=== PATIENT | male | born 1970 | race Caucasian/White ===

== ENCOUNTER → 2025-07-29 | Outpatient (CLI) | payer BC, SELFPAY ==
--- NOTE | 2025-07-29 09:22 | US_ITS ---
PROCEDURE: ABD LIMITED W/ ELASTOGRAPHY REASON FOR EXAM: FATTY LIVER COMPARISON: None. TECHNIQUE: Procedure Code: [id number] Modality: US Procedure: ABD LIMITED W/ ELASTOGRAPHY Right upper quadrant abdominal ultrasound. Lisa ElastQ Imaging shear wave elastography for non-invasive assessment of liver tissue stiffness. Lisa EPIQ Elite. FINDINGS: LIVER: Size: Enlarged (hepatomegaly) Length: 19.5 cm Echotexture: Diffusely echogenic suggesting fatty infiltration Contour: Normal Lesions: None identified Elastography: EQI Med: 10.2 kPa EQI Med Dez: 1.82 m/s IQR/Med: 20.8 %* GALLBLADDER: Sludge is seen within the gallbladder lumen. There is evidence of a 3 mm x 3 mm x 3 mm gallbladder polyp. COMMON BILE DUCT: Normal measuring 6 mm. . PANCREAS: Normal Visualized portions of the right kidney are unremarkable. No right upper quadrant ascites. US/ABD Limited w/ Elastography IMPRESSION: MODERATE TO SEVERE HEPATIC FIBROSIS Hepatomegaly. Small gallbladder polyp. Small amount of sludge is seen in the gallbladder lum en. Reference Values: SRU <1.37 m/s (5.7kPa): No to mild fibrosis 1.37 m/s - 2.2 m/s: Moderate to severe fibrosis >2.2 m/s (15kPa): Significant fibrosis / cirrhosis METAVIR Score F2 or higher: 1.34 m/s (5.7kPa) F3 or higher: 1.55 m/s (7.3kPa) F4: 1.80 m/s (10kPa) * If the IQR/Med is >30%, the variance in the measurements is a large and the a ccuracy of the measurement may be in question. Reading Location: [place] [id number]
--- OUTSIDE RECORDS SUMMARY | 2025-07-29 10:00 | XMS RPT_ITS | CCD ---
Author Organization [facility] ion Partnership [facility] Care Team Providers Care Stockroom Worker Name Role Phone Avila Harris Unavailable [phone] Unavailable Unavailable Avila Harris MD Primary Care Provider [phone] Avila Harris MD Unavailable [phone] AVILA HARRIS Referring Unavailable AVILA HARRIS Primary Care Unavailable Avila Harris MD Primary Care Provider Avila Harris MD Primary Care Provider Avila Harris MD Unavailable AVILA HARRIS Attending Unavailable AVILA HARRIS Primary Care Unavailable Avila Harris Referring Unavailable Avila Harris Unavailable Avila Harris Primary Care Unavailable Allergies Allergy Classification Reported Allergen(s) Allergy Type Date of Onset Reaction(s) Facility Penicillins (antibiotic) (2 sources) Penicillins; Translations: [Penicillins] [facility] Work Phone: (5 sources) Penicillins; Translations: [Penicillins] Allergy to drug (finding) 10-30-2022 [email or web address] 2 Repository (5 sources) Penicillins Drug Allergy 10-30-2022 Unknown [facility] (1 source) Penicillins Drug Allergy 10-30-2022 Unknown [facility] Medications Current Medications Medication Drug Class(es) Dates Sig (Normalized) Sig (Original) atorvastatin 40 mg oral tablet (14 sources) HMG-CoA Reductase Inhibitor Start: 04-30-2025 End: 07-02-2026 take 1 tablet by mouth once daily atorvastatin (Lipitor) 40 mg tablet Indications: Mixed hyperlipidemia Take 1 tablet (40 mg) by mouth once every day. 90 tablet 3 07/02/2025 07/02/2026 Active Start: 11-06-2022 End: 02-04-2025 take 1 tablet by mouth once daily atorvastatin (Lipitor) 40 mg tablet Indications: Mixed hyperlipidemia Take 1 tablet (40 mg) by mouth once every day. 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 30 tablet 11 11/06/2022 02/15/2023 Discontinued (Therapy completed) Start: 11-24-2019 take 1 tablet by sonia th once daily Levothyroxine Sodium 25 MCG Oral Tablet Take 1 tablet daily Quantity: 90 Refills: 0 Ordered: 14-Jan-2021 Avila Harris MD Start : 24-Nov-2019 Active take with 200 mcg for total daily dose of 225 mcg predniSONE 10 mg oral tablet (1 source) Start: 02-05-2024 End: 02-10-2024 take 4 tablets by mouth once daily predniSONE (Deltasone) 10 mg tablet Indications: Acute pain of right knee Take 4 tablets (40 mg) by mouth once daily for 5 days. 20 tablet 2 02/05/2024 02/10/2024 Active Problems Active Problems Problem Classification Problem Date Documented Da te Episodic/Chronic Disorders of lipid metabolism (17 sources) Hyperlipidemia; Translations: [Other and unspecified hyperlipidemia] Onset: 10-30-2022 10-30-2022 Chronic Other liver diseases (18 sources) Steatosis of liver; Translations: [Other chronic nonalcoholic liver disease] Onset: 10-30-2022 02-15-2023 Chronic Other liver diseases (5 sources) Fatty (change of) liver, not elsewhere classified; Translations: [Fatty (change of) liver, not elsewhere classified] Onset: 10-30-2022 Chronic Other non-traumatic joint disorders (1 source) Pain in right knee; Translations: [Pain in joint, lower leg] 02-05-2024 Episodic Other nutritional; endocrine; and metabolic disorders (15 sources) Obesity; Translations: [Obesity, unspecified] Onset: 10-30-2022 02-15-2023 Chronic Other nutritional; endocrine; and metabolic disorders (7 sources) Severe obesity; Translations: [Morbid obesity] Onset: 10-30-2022 10-30-2022 Chronic Other screening for suspected conditions (not mental disorders or infectious disease) (7 sources) Patient encounter status; Translations: [Special screening for malignant neoplasms of colon] Onset: 07-02-2025 07-02-2025 Episodic Thyroid disorders (17 sources) Hypothyroidism; Translations: [Unspecified acquired hypothyroidism] Onset: 10-30-2022 02-15-2023 Chronic Unclassified (1 source) Patient encounter status 07-02-2025 Past or Other Problems Problem Classification Problem Date Documented Date Episodic/Chronic Diabetes mellitus without complication (11 sources) Prediabetes; Translations: [Other abnormal glucose] Onset: 10-30-2022 10-30-2022 Episodic Other connective tissue disease (9 sources) Suprapatellar bursitis of left knee; Translations: [Other enthesopathy of knee] Onset: 10-30-2022 10-30-2022 Episodic Results Test Name Value Interpretation Reference Range Facility CBC (H/H, RBC, INDICES, WBC, PLT)on 06-26-2025 Erythrocyte distribution width (RBC) [Ratio] 12.2 % Normal 11.0-15.0 [facility] Comment on above: Performed By: #### 5 363, 7600, 1759, 899, 88591 #### [facility] [place] [address] Station Helper: Cresencio Clark MD Hematocrit (Bld) [Volume fraction] 43.4 % Normal 38.5-50.0 [facility] Comment on above: Performed By: #### 5 363, 7600, 1759, 899, 81189 #### [facility] [place] [address] Station Helper: Cresencio Clark MD Hemoglobin (Bld) [Mass/Vol] 14.9 g/dL Normal 13.2-17.1 [facility] Comment on above: Performed By: #### 5 363, 7600, 1759, 899, 78804 #### [facility] [place] [address] Station Helper: Cresencio Clark MD MCH (RBC) [Entitic mass] 32.7 pg Normal 27.0-33.0 [facility] Comment on above: Performed By: #### 5 363, 7600, 1759, 899, 51314 #### [facility] [address] [place] [address] Station Helper: Cresencio Clark MD MCHC (RBC) [Mass/Vol] 34.3 g/dL Normal 32.0-36.0 [facility] Comment on above: Result Comment: For adults, a slight decrease in the calculated MCHC value (in the range of 30 to 32 g/dL) is most likely not clinically significant; however, it should be interpreted with caution in correlation with other red cell parameters and the patient's clinical condition. Performed By: #### 5 363, 7600, 175, 89, 97525 #### [facility] [address], [address] [place] [address] Station Helper: Cresencio Clark MD MCV (RBC) [Entitic vol] 95.2 fL Normal 80.0-100.0 [facility] Comment on above: Performed By: #### 5 363, 7600, 1758, , 15889 #### [facility] [address], [address] [place] [address] Station Helper: Cresencio Clark MD Platelet mean volume (Bld) [Entitic vol] 10.5 fL Normal 7.5-12.5 [facility] Comment on above: Performed By: #### 5 363, 7600, 175, 89, 08033 #### [facility] [place] [address] Station Helper: Cresencio Clark MD Platelets (Bld) [#/Vol] 215 10*3/uL Normal 140-400 [facility] Comment on above: Performed By: #### 5 363, 7600, 175, 89, 48853 #### [facility] [place] [address] Station Helper: Cresencio Clark MD RBC (Bld) [#/Vol] 4.56 10*6/uL Normal 4.20-5.80 [facility] Comment on above: Performed By: #### 5 363, 7600, 175, 89, 01796 #### [facility] of [place] [address] [place] [address] Station Helper: Cresencio Clark MD WBC (Bld) [#/Vol] 5.6 10*3/uL Normal 3.8-10.8 [facility] Comment on above: Performed By: #### 5 363, 7600, 1759, 899, 83527 #### [facility] of [address], [address] [place] [address] Station Helper: Cresencio Clark MD COMPREHENSIVE METABOLIC PANE L W/ANION GAPon 06-26-2025 Albumin [Mass/Vol] 4.8 g/dL Normal 3.6-5.1 [facility] Comment on above: Performed By: #### 5 363, 7600, 175, 89, 79968 #### [facility] [place] [address] Station Helper: Cresencio Clark MD ALP [Catalytic activity/Vol] 70 U/L Normal 35-144 [facility] Comment on above: Performed By: #### 5 363, 7600, 1759, 899, 23358 #### [facility] [place] [address] Station Helper: Cresencio Clark MD ALT [Catalytic activity/Vol] 85 U/L High 9-46 [facility] Comment on above: Performed By: #### 5 363, 7600, 1759, 899, 45137 #### [facility] of [place] [address] Station Helper: Cresencio Clark MD AST [Catalytic activity/Vol] 96 U/L High 10-35 [facility] Comment on above: Performed By: #### 5 363, 7600, 1759, 899, 90550 #### [facility] of [place] [address] Station Helper: Cresencio Clark MD Bilirubin [Mass/Vol] 0.7 mg/dL Normal 0.2-1.2 [facility] Comment on above: Performed By: #### 5 363, 7600, 1759, 899, 04131 #### [facility] [place] [address] Station Helper: Cresencio Clark MD Calcium [Mass/Vol] 9.6 mg/dL Normal 8.6-10.3 [facility] Comment on above: Performed By: #### 5 363, 7600, 175, 89, 83342 #### [facility] [place] [address] Station Helper: Cresencio Clark MD Chloride [Moles/Vol] 103 mmol/L Normal 98-110 [facility] Comment on above: Performed By: #### 5 363, 7600, 175, , 09061 #### [facility] [place] [address] Station Helper: Cresencio Clark MD CO2 [Moles/Vol] 25 mmol/L Normal 20-32 [facility] Comment on above: Performed By: #### 5 363, 7600, 175, 89, 68277 #### [facility] [place] [address] Station Helper: Cresencio Clark MD Creatinine [Mass/Vol] 0.74 mg/dL Normal 0.70-1.30 [facility] Comment on above: Performed By: #### 5 363, 0, 175, 89, 97969 #### [facility] [place] [address] Station Helper: Cresencio Clark MD ELECTROLYTE BALANCE 9 mmol/L (calc) Normal 7-17 [facility] Comment on above: Performed By: #### 5 363, 7600, 175, 89, 85711 #### [facility] [place] [address] Station Helper: Cresencio Clark MD GFR/1.73 sq M.predicted among non-blacks MDRD (S/P/Bld) [Vol rate/Area] 108 mL/min/{1.73_m2} Normal > OR = 60 [facility] Comment on above: Performed By: #### 5 363, 7600, 1759, 899, 70407 #### [facility] [place] [address] Station Helper: Cresencio Clark MD Glucose [Mass/Vol] 127 mg/dL High 65-99 [facility] Comment on above: Result Comment: Fasting reference interval For someone without known diabetes, a glucose value >125 mg/dL indicates that they may have diabetes and this should be confirmed with a follow-up test. Performed By: #### 5 363, 7600, 1759, 89, 80463 #### [facility] [place] [address] Station Helper: Cresencio Clark MD Potassium [Moles/Vol] 4.6 mmol/L Normal 3.5-5.3 [facility] Comment on above: Performed By: #### 5 363, 7600, 175, 89, 02056 #### [facility] [place] [address] Station Helper: Cresencio Clark MD Protein [Mass/Vol] 7.9 g/dL Normal 6.1-8.1 [facility] Comment on above: Performed By: #### 5 363, 7600, 175, 89, 14476 #### [facility] [place] [address] Station Helper: Cresencio Clark MD Sodium [Moles/Vol] 137 mmol/L Normal 135-146 [facility] Comment on above: Performed By: #### 5 363, 7600, 1759, 899, 72939 #### [facility] [place] [address] Station Helper: Cresencio Clark MD Urea nitrogen [Mass/Vol] 14 mg/dL Normal 7-25 [facility] Comment on above: Performed By: #### 5 363, 7600, 1759, 899, 76061 #### [facility] [address] [place] [address] Station Helper: Cresencio Clark MD LIPID PANEL, [place] [address] Cholesterol [Mass/Vol] 166 mg/dL Normal <200 [facility] Comment on above: Order Comment: FASTI NG:YES FASTING: YES Performed By: #### 5 363, 7600, 1759, 899, 50530 #### [facility] [address], [address] [place] [address] Station Helper: Cresencio Clark MD Cholesterol in HDL [Mass/Vol] 41 mg/dL Normal > OR = 40 [facility] Comment on above: Order Comment: FASTI NG:YES FASTING: YES Performed By: #### 5 363, 7600, 1759, 899, 76022 #### [facility] [address], [address] [place] [address] Station Helper: Cresencio Clark MD Cholesterol in LDL [Mass/Vol] 98 mg/dL Normal [facility] Comment on above: Order Comment: FASTI NG:YES FASTING: YES Result Comment: Refe rence range: <100 Desirable range <100 mg/dL for primary prevention; <70 mg/dL for patients with CHD or diabetic patients with > or = 2 CHD risk factors. LDL-C is now calculated using the Adria calculation, which is a validated novel method providing better accuracy than the Friedewald equation in the estimation of LDL-C. Rosalio SMITH et al. BUD. 2013;310(19): 9641-3429 (http://education.[employer]/faq/IZQ231) Performed By: #### 5 363, 7600, 1759, 899, 99932 #### [facility] [address], [address] [place] [address] Station Helper: Cresencio Clark MD Cholesterol.total /Cholesterol in HDL [Mass ratio] 4.0 {ratio} Normal <5.0 [facility] Comment on above: Order Comment: FASTI NG:YES FASTING: YES Performed By: #### 5 363, 7600, 1759, 899, 17931 #### [facility] [address], [address] [place] [address] Station Helper: Cresencio Clark MD NON HDL CHOLESTEROL 125 mg/dL (calc) Normal <130 [facility] Comment on above: Order Comment: FASTI NG:YES FASTING: YES Result Comment: For patients with diabetes plus 1 major ASCVD risk factor, treating to a non-HDL-C goal of <100 mg/dL (LDL-C of <70 mg/dL) is considered a therapeutic option. Performed By: #### 5 363, 7600, 1759, 89, 48374 #### [facility] [address], [address] [place] [address] Station Helper: Cresencio Clark MD Triglyceride [Mass/Vol] 170 mg/dL High <150 [facility] Comment on above: Order Comment: FASTI NG:YES FASTING: YES Performed By: #### 5 363, 7600, 175, 89, 15136 #### [facility] [address], [address] [place] [address] Station Helper: Cresencio Clark MD PSA, TOTALon 06-26-2025 PSA, TOTAL 0.31 ng/mL Normal < OR = 4.00 [facility] Comment on above: Result Comment: The total PSA value from this assay system is standardized against the WHO standard. The test result will be approximately 20% lower when compared to the equimolar-standardized total PSA (Blaine Darrius). Comparison of serial PSA results should be interpreted with this fact in mind. This test was performed using the Siemens chemiluminescent method. Values obtained from different assay methods cannot be used interchangeably. PSA levels, regardless of value, should not be interpreted as absolute evidence of the presence or absence of disease. Performed By: #### 5 363, 7600, 1759, 89, 03030 #### [facility] [address], [address] [place] [address] Station Helper: Cresencio Clark MD TSHon 06-26-2025 TSH Qn 0.30 m[IU]/L Low 0.40-4.50 [facility] Comment on above: Performed By: #### 5 363, 7600, 1759, 89, 06527 #### [facility] [address], [address] [place] [address] Station Helper: Cresencio Clark MD US ABDOMEN LIMITED LIVERon 0 09-21-2023 US ABDOMEN LIMITED LIVER Interpreted By: Tova Gomez, STUDY: US ABDOMEN LIMITED LIVER; 09/21/2023 7:53 am INDICATION: Signs/Symptoms:elevated lfts. COMPARISON: None. ACCESSION NUMBER(S): [id number] ORDERING CLINICIAN: AVILA HARRIS TECHNIQUE: Multiple images of the right upper quadrant were obtained. This examination was interpreted at [facility]. FINDINGS: LIVER: Liver measures 18.4 cm in craniocaudal dimension. The liver is diffusely echogenic in appearance, consistent with diffuse fatty infiltration. GALLBLADDER: The gallbladder is nondistended and demonstrates no evidence of gallstones, wall thickening or surrounding fluid. The gallbladder wall measures 3 mm, within upper limits of normal. Sonographic Lubin's sign is negative per technologist report. BILIARY TREE: No intra or extrahepatic biliary dilatation is identified. The common bile duct measures 4 mm. PANCREAS: The pancreas is poorly visualized due to overlying bowel gas.. RIGHT KIDNEY: The right kidney is normal in size, measuring 12 cm in craniocaudal dimension. The renal cortical echogenicity and thickness are within normal limits. No hydronephrosis or renal calculi are seen. IMPRESSION: Findings suggestive of hepatic steatosis. MACRO: None. Signed by: Tova Gomez 09/21/2023 12:14 PM Dictation workstation: [id number] [facility] US Liver limitedon Findings suggestive of hepatic steatosis. MACRO: None. Signed by: Tova Gomez 09/21/2023 12:14 PM Dictation workstation: [id number] Interpreted By: Tova Andino, STUDY: US ABDOMEN LIMITED LIVER; 09/21/2023 7:53 am INDICATION: Signs/Symptoms:elevated lfts. COMPARISON: None. ACCESSION NUMBER(S): [id number] ORDERING CLINICIAN: AVILA HARRIS TECHNIQUE: Multiple images of the right upper quadrant were obtained. This examination was interpreted at [facility]. FINDINGS: LIVER: Liver measures 18.4 cm in craniocaudal dimension. The liver is diffusely echogenic in appearance, consistent with diffuse fatty infiltration. GALLBLADDER: The gallbladder is nondistended and demonstrates no evidence of gallstones, wall thickening or surrounding fluid. The gallbladder wall measures 3 mm, within upper limits of normal. Sonographic Lubin's sign is negative per technologist report. BILIARY TREE: No intra or extrahepatic biliary dilatation is identified. The common bile duct measures 4 mm. PANCREAS: The pancreas is poorly visualized due to overlying bowel gas.. RIGHT KIDNEY: The right kidney is normal in size, measuring 12 cm in craniocaudal dimension. The renal cortical echogenicity and thickness are within normal limits. No hydronephrosis or renal calculi are seen. [facility] MMODAL Tova Gomez MD - 09/21/2023 Interpreted By: Tova Gomez, STUDY: US ABDOMEN LIMITED LIVER; 09/21/2023 7:53 am INDICATION: Signs/Symptoms:elevated lfts. COMPARISON: None. ACCESSION NUMBER(S): [id number] ORDERING CLINICIAN: AVILA HARRIS TECHNIQUE: Multiple images of the right upper quadrant were obtained. This examination was interpreted at [facility]. FINDINGS: LIVER: Liver measures 18.4 cm in craniocaudal dimension. The liver is diffusely echogenic in appearance, consistent with diffuse fatty infiltration. GALLBLADDER: The gallbladder is nondistended and demonstrates no evidence of gallstones, wall thickening or surrounding fluid. The gallbladder wall measures 3 mm, within upper limits of normal. Sonographic Lubin's sign is negative per technologist report. BILIARY TREE: No intra or extrahepatic biliary dilatation is identified. The common bile duct measures 4 mm. PANCREAS: The pancreas is poorly visualized due to overlying bowel gas.. RIGHT KIDNEY: The right kidney is normal in size, measuring 12 cm in craniocaudal dimension. The renal cortical echogenicity and thickness are within normal limits. No hydronephrosis or renal calculi are seen. IMPRESSION: Findings suggestive of hepatic steatosis. MACRO: None. Signed by: Tova Gomez 09/21/2023 12:14 PM Dictation workstation: [id number] [facility] Work Phone: Radiology Study observation (narrative) [facility] Work Phone: US Liver limitedOrdered By: Tova Gomez on 09-21-2023 [facility] Work Phone: HEMOGLOBIN A1Con 11-02-2022 Glucose [Mass/Vol] 128 mg/dL Normal [facility] Comment on above: Performed By: #### H BA1E #### [address] [address] HbA1c (Bld) [Mass fraction] 6.1 % Abnormal [facility] Comment on above: Result Comment: Diag nosis of Diabetes-Adults Non-Diabetic: < or = 5.6% Increased risk for developing diabetes: 5.7-6.4% Diagnostic of diabetes: > or = 6.5% . Monitoring of Diabetes Age (y) Therapeutic Goal (%) Adults: >18 <7.0 Pediatrics: 13-18 <7.5 7-12 <8.0 0- 6 7.5-8.5 [employer]. Diabetes Care 33(S1), Sep 2009. Performed By: #### H BA1E #### [address] [address] CBC AND DIFFERENTIALon 11-01 % AUTOMATED IMMATURE GRAN 0.3 % Normal 0.0 - 0.9 [facility] Comment on above: Result Comment: Daisy ture Granulocyte Count (IG) includes promyelocytes, myelocytes and metamyelocytes but does not include bands. Percent differential counts (%) should be interpreted in the context of the absolute cell counts (cells/L). Performed By: #### C BCDF #### [address] [address] Basophils (Bld) [#/Vol] 0.05 10*3/uL Normal 0.00 - 0.10 [facility] Comment on above: Performed By: #### C BCDF #### [address] [address] Basophils/100 WBC (Bld) 0.7 % Normal 0.0 - 2.0 [facility] Comment on above: Performed By: #### C BCDF #### [address] [address] Eosinophils (Bld) [#/Vol] 0.31 10*3/uL Normal 0.00 - 0.70 [facility] Comment on above: Performed By: #### C BCDF #### [address] [address] Eosinophils/100 WBC (Bld) 4.6 % Normal 0.0 - 6.0 [facility] Comment on above: Performed By: #### C BCDF #### [address] [address] Erythrocyte distribution width (RBC) [Ratio] 13.2 % Normal 11.5 - 14.5 [facility] Comment on above: Performed By: #### C BCDF #### [address] [address] Hematocrit (Bld) [Volume fraction] 44.8 % Normal 41.0 - 52.0 [facility] Comment on above: Performed By: #### C BCDF #### [address] [address] Hemoglobin (Bld) [Mass/Vol] 15.0 g/dL Normal 13.5 - 17.5 [facility] Comment on above: Performed By: #### C BCDF #### [address] [address] Lymphocytes (Bld) [#/Vol] 1.41 10*3/uL Normal 1.20 - 4.80 [facility] Comment on above: Performed By: #### C BCDF #### [address] [address] Lymphocytes/100 WBC (Bld) 20.7 % Normal 13.0 - 44.0 [facility] Comment on above: Performed By: #### C BCDF #### [address] [address] MCHC (RBC) [Mass/Vol] 33.5 g/dL Normal 32.0 - 36.0 [facility] Comment on above: Performed By: #### C BCDF #### [address] [place] [address] MCV (RBC) [Entitic vol] 93 fL Normal 80 - 100 [facility] Comment on above: Performed By: #### C BCDF #### [address] [address] Monocytes (Bld) [#/Vol] 0.51 10*3/uL Normal 0.10 - 1.00 [facility] Comment on above: Performed By: #### C BCDF #### [address] [address] Monocytes/100 WBC (Bld) 7.5 % Normal 2.0 - 10.0 [facility] Comment on above: Performed By: #### C BCDF #### [address] [address] Neutrophils (Bld) [#/Vol] 4.51 10*3/uL Normal 1.20 - 7.70 [facility] Comment on above: Result Comment: Perc ent differential counts (%) should be interpreted in the context of the absolute cell counts (cells/L). Performed By: #### C BCDF #### [address] [address] Neutrophils/100 WBC (Bld) 66.2 % Normal 40.0 - 80.0 [facility] [facility] Comment on above: Performed By: #### C BCDF #### [address] [address] Platelets (Bld) [#/Vol] 227 10*3/uL Normal 150 - 450 [facility] Comment on above: Performed By: #### C BCDF #### [address] [address] RBC 4.83 x10E12/L Normal 4.50 - 5.90 [facility], [place], operated [facility] Comment on above: Performed By: #### C BCDF #### [address] [address] WBC (Bld) [#/Vol] 6.8 10*3/uL Normal 4.4 - 11.3 [facility] Comment on above: Performed By: #### C BCDF #### [address] [address] COMPREHENSIVE PANELon 2022 Albumin [Mass/Vol] 4.8 g/dL Normal 3.4 - 5.0 [facility] Comment on above: Performed By: #### C MP #### [address] [address] ALP [Catalytic activity/Vol] 69 U/L Normal 33 - 120 [facility] Comment on above: Performed By: #### C MP #### [address] [address] ALT [Catalytic activity/Vol] 115 U/L High 10 - 52 [facility] Comment on above: Result Comment: Karina ents treated with Sulfasalazine may generate falsely decreased results for ALT. Performed By: #### C MP #### [address] [address] Anion gap [Moles/Vol] 11 mmol/L Normal 10 - 20 [facility] Comment on above: Performed By: #### C MP #### [address] [address] AST [Catalytic activity/Vol] 110 U/L High 9 - 39 [facility] Comment on above: Performed By: #### C MP #### [address] [address] Bilirubin [Mass/Vol] 0.9 mg/dL Normal 0.0 - 1.2 [facility] Comment on above: Performed By: #### C MP #### [address] [address] Calcium [Mass/Vol] 9.7 mg/dL Normal 8.6 - 10.3 [facility] Comment on above: Performed By: #### C MP #### [address] [address] Chloride [Moles/Vol] 102 mmol/L Normal 98 - 107 [facility] Comment on above: Performed By: #### C MP #### [address] [address] Creatinine [Mass/Vol] 0.72 mg/dL Normal 0.50 - 1.30 [facility] Comment on above: Performed By: #### C MP #### [address] [address] eGFR MALE >90 Normal >90 [facility] Comment on above: Result Comment: CALC ULATIONS OF ESTIMATED GFR ARE PERFORMED USING THE 2020 CKD-EPI STUDY REFIT EQUATION WITHOUT THE RACE VARIABLE FOR THE IDMS-TRACEABLE CREATININE METHODS. https://jasn.asnjournals.org/content/early//ASN.3993401130 Performed By: #### C MP #### [address] [address] Glucose [Mass/Vol] 111 mg/dL High 74 - 99 [facility] Comment on above: Performed By: #### C MP #### [address] [address] HCO3 (Bld) [Moles/Vol] 27 mmol/L Normal 21 - 32 [facility] Comment on above: Performed By: #### C MP #### [address] [address] Potassium [Moles/Vol] 4.3 mmol/L Normal 3.5 - 5.3 [facility] Comment on above: Performed By: #### C MP #### [address] [address] Protein [Mass/Vol] 8.1 g/dL Normal 6.4 - 8.2 [facility] Comment on above: Performed By: #### C MP #### [address] [address] Sodium [Moles/Vol] 136 mmol/L Normal 136 - 145 [facility] Comment on above: Performed By: #### C MP #### [address] [address] Urea nitrogen [Mass/Vol] 11 mg/dL Normal 6 - 23 [facility] Comment on above: Performed By: #### C MP #### [address] [address] Complete Blood Count + Diffe rentialon 03-01-2023 Basophils/100 WBC (Bld) 0.7 % 0.0 - 2.0 [facility] Work Phone: Erythrocyte distribution width (RBC) [Ratio] 13.2 % See Below [facility] Work Phone: Comment on above: Reference Range: 11. 5 - 14.5 Hematocrit (Bld) [Volume fraction] 44.8 % See Below [facility] Work Phone: Comment on above: Reference Range: 41. 0 - 52.0 Hemoglobin (Bld) [Mass/Vol] 15.0 g/dL See Below [facility] Work Phone: Comment on above: Reference Range: 13. 5 - 17.5 Lymphocytes/100 WBC (Bld) 20.7 % See Below [facility] Work Phone: Comment on above: Reference Range: 13. 0 - 44.0 MCHC (RBC) [Mass/Vol] 33.5 g/dL See Below [facility] Work Phone: Comment on above: Reference Range: 32. 0 - 36.0 MCV (RBC) [Entitic vol] 93 fL 80 - 100 [facility] Work Phone: Monocytes/100 WBC (Bld) 7.5 % 2.0 - 10.0 [facility] Work Phone: Neutrophils/100 WBC (Bld) 66.2 % See Below [facility] Work Phone: Comment on above: Reference Range: 40. 0 - 80.0 Platelets (Bld) [#/Vol] 227 10*3/uL 150 - 450 [facility] Work Phone: RBC (Bld) [#/Vol] 4.83 {x10E12/L} See Below [facility] Work Phone: Comment on above: Reference Range: 4.5 0 - 5.90 WBC (Bld) [#/Vol] 6.8 10*3/uL 4.4 - 11.3 [facility] Work Phone: Complete Blood Count + Differential 0.05 {x10E9/L} See Below [facility] Work Phone: Comment on above: Reference Range: 0.0 0 - 0.10 Complete Blood Count + Differential 0.31 {x10E9/L} See Below [facility] Work Phone: Comment on above: Reference Range: 0.0 0 - 0.70 Complete Blood Count + Differential 0.51 {x10E9/L} See Below [facility] Work Phone: Comment on above: Reference Range: 0.1 0 - 1.00 Complete Blood Count + Differential 1.41 {x10E9/L} See Below [facility] Work Phone: Comment on above: Reference Range: 1.2 0 - 4.80 Complete Blood Count + Differential 4.51 {x10E9/L} See Below [facility] Work Phone: Comment on above: Reference Range: 1.2 0 - 7.70 Percent differential counts (%) should be interpreted in the context of the absolute cell counts (cells/L). Complete Blood Count + Differential 4.6 % 0.0 - 6.0 [facility] Work Phone: Complete Blood Count + Differential 0.3 % 0.0 - 0.9 [facility] Work Phone: Comment on above: Immature Granulocyte Count (IG) includes promyelocytes, myelocytes and metamyelocytes but does not include bands. Percent differential counts (%) should be interpreted in the context of the absolute cell counts (cells/L). Hemoglobin A1Con 11-01-2022 Glucose [Mass/Vol] 128 mg/dL [facility] Work Phone: HbA1c (Bld) [Mass fraction] 6.1 % Abnormal [facility] Work Phone: Comment on above: Diagnosis of Diabete s-Adults Non-Diabetic: < or = 5.6% Increased risk for developing diabetes: 5.7-6.4% Diagnostic of diabetes: > or = 6.5%. Monitoring of Diabetes Age (y) Therapeutic Goal (%) Adults: >18 <7.0 Pediatrics: 13-18 <7.5 7-12 <8.0 0- 6 7.5-8.5 [employer]. Diabetes Care 33(S1), Sep 2009. LIPID PANEL (CORONARY RISK 2 )on 11-01-2022 Cholesterol [Mass/Vol] 251 mg/dL High 0 - 199 [facility] Comment on above: Result Comment: . AGE DESIRABLE BORDERLINE HIGH HIGH 0-19 Y 0 - 169 170 - 199 >/= 200 20-24 Y 0 - 189 190 - 224 >/= 225 >24 Y 0 - 199 200 - 239 >/= 240 All ranges are based on fasting samples. Specific therapeutic targets will vary based on patient-specific cardiac risk. . Pediatric guidelines reference:Pediatrics 2011, 128(S5). Adult guidelines reference: NCEP ATPIII Guidelines, BUD 2001, 258:2486-97 . Venipuncture immediately after or during the administration of Metamizole may lead to falsely low results. Testing should be performed immediately prior to Metamizole dosing. Performed By: #### L IPID #### [address] [address] Cholesterol in HDL [Mass/Vol] 40.0 mg/dL Normal [facility] Comment on above: Result Comment: . AGE VERY LOW LOW NORMAL HIGH 0-19 Y < 35 < 40 40-45 ---- 20-24 Y ---- < 40 >45 ---- >24 Y ---- < 40 40-60 >60 . Performed By: #### L IPID #### [address] [address] Cholesterol in LDL [Mass/Vol] 157 mg/dL High 0 - 99 [facility] Comment on above: Result Comment: . NEAR BORD AGE DESIRABLE OPTIMAL HIGH HIGH VERY HIGH 0-19 Y 0 - 109 --- 110-129 >/= 130 ---- 20-24 Y 0 - 119 --- 120-159 >/= 160 ---- >24 Y 0 - 99 100-129 130-159 160-189 >/=190 . Performed By: #### L IPID #### [address] [address] Cholesterol in VLDL [Mass/Vol] 54 mg/dL High 0 - 40 [facility] Comment on above: Performed By: #### L IPID #### [address] [address] Cholesterol.total /Cholesterol in HDL [Mass ratio] 6.3 {ratio} Abnormal [facility] Comment on above: Result Comment: REF VALUES DESIRABLE < 3.4 HIGH RISK > 5.0 Performed By: #### L IPID #### [address] [address] NON-HDL CHOLESTEROL 211 mg/dL Normal [facility] Comment on above: Result Comment: AGE DESIRABLE BORDERLINE HIGH HIGH VERY HIGH 0-19 Y 0 - 119 120 - 144 >/= 145 >/= 160 20-24 Y 0 - 149 150 - 189 >/= 190 ---- >24 Y 30 MG/DL ABOVE LDL CHOLESTEROL GOAL . Performed By: #### L IPID #### [address] [address] Triglyceride [Mass/Vol] 269 mg/dL High 0 - 149 [facility] Comment on above: Result Comment: . AGE DESIRABLE BORDERLINE HIGH HIGH VERY HIGH 0 D-90 D 19 - 174 ---- ---- ---- 91 D- 9 Y 0 - 74 75 - 99 >/= 100 ---- 10-19 Y 0 - 89 90 - 129 >/= 130 ---- 20-24 Y 0 - 114 115 - 149 >/= 150 ---- >24 Y 0 - 149 150 - 199 200- 499 >/= 500 . Venipuncture immediately after or during the administration of Metamizole may lead to falsely low results. Testing should be performed immediately prior to Metamizole dosing. Performed By: #### L IPID #### [address] [address] Laboratory - Chemistry and C hemistry - challengeon 11-01-2022 Albumin BCP dye [Mass/Vol] 4.8 g/dL 3.4 - 5.0 [facility] Work Phone: ALP [Catalytic activity/Vol] 69 U/L 33 - 120 [facility] Work Phone: ALT With P-5'-P [Catalytic activity/Vol] 115 U/L above high threshold 10 - 52 -[facility] [employer] [facility] Work Phone: Comment on above: Patients treated wit h Sulfasalazine may generate falsely decreased results for ALT. Anion gap [Moles/Vol] 11 mmol/L 10 - 20 [facility] Work Phone: AST With P-5'-P [Catalytic activity/Vol] 110 U/L above high threshold 9 - 39 -[facility] Work Phone: Bilirubin [Mass/Vol] 0.9 mg/dL 0.0 - 1.2 -[facility] [employer] [facility] Work Phone: Calcium [Mass/Vol] 9.7 mg/dL 8.6 - 10.3 [facility] Work Phone: Chloride [Moles/Vol] 102 mmol/L 98 - 107 [facility] Work Phone: CO2 [Moles/Vol] 27 mmol/L 21 - 32 -[facility] Work Phone: Creatinine [Mass/Vol] 0.72 mg/dL See Below [facility] [employer] [facility] Work Phone: Comment on above: Reference Range: 0.5 0 - 1.30 Glucose [Mass/Vol] 111 mg/dL above high threshold 74 - 99 [facility] Work Phone: Potassium [Moles/Vol] 4.3 mmol/L 3.5 - 5.3 -[facility] [employer] [facility] Work Phone: Protein [Mass/Vol] 8.1 g/dL 6.4 - 8.2 [employer] [facility] Work Phone: Sodium [Moles/Vol] 136 mmol/L 136 - 145 [facility] Work Phone: Urea nitrogen [Mass/Vol] 11 mg/dL 6 - 23 [facility] Work Phone: Lipid Panelon 11-01-2022 Cholesterol [Mass/Vol] 251 mg/dL above high threshold 0 - 199 [facility] Work Phone: Comment on above: . AGE DESIRABLE BORD MOLLY HIGH HIGH 0-19 Y 0 - 169 170 - 199 >/= 200 20-24 Y 0 - 189 190 - 224 >/= 225 >24 Y 0 - 199 200 - 239 >/= 240 All ranges are based on fasting samples. Specific therapeutic targets will vary based on patient-specific cardiac risk.. Pediatric guidelines reference:Pediatrics 2011, 128(S5). Adult guidelines reference: NCEP ATPIII Guidelines, BUD 2001, 258:2486-97. Venipuncture immediately after or during the administration of Metamizole may lead to falsely low results. Testing should be performed immediately prior to Metamizole dosing. Cholesterol in HDL [Mass/Vol] 40.0 mg/dL [employer] [facility] Work Phone: Comment on above: . AGE VERY LOW LOW N ORMAL HIGH 0-19 Y < 35 < 40 40-45 ---- 20- 24 Y ---- < 40 >45 ---- >24 Y ---- < 40 40-60 >60. Cholesterol in LDL [Mass/Vol] 157 mg/dL above high threshold 0 - 99 [employer] [facility] Work Phone: Comment on above: . NEAR BORD AGE ROSARIO RABLE OPTIMAL HIGH HIGH VERY HIGH 0-19 Y 0 - 109 --- 110-129 >/= 130 ---- 20-24 Y 0 - 119 --- 120-159 >/= 160 ---- >24 Y 0 - 99 100-129 130-159 160-189 >/=190. Cholesterol non HDL [Mass/Vol] 211 mg/dL [employer] [facility] Work Phone: Comment on above: AGE DESIRABLE BORDER LINE HIGH HIGH VERY HIGH 0-19 Y 0 - 119 120 - 144 >/= 145 >/= 160 20-24 Y 0 - 149 150 - 189 >/= 190 ---- >24 Y 30 MG/DL ABOVE LDL CHOLESTEROL GOAL. Cholesterol.total /Cholesterol in HDL [Mass ratio] 6.3 {ratio} Abnormal [employer] [facility] Work Phone: Comment on above: REF VALUESDESIRABLE < 3.4HIGH RISK > 5.0 Triglyceride [Mass/Vol] 269 mg/dL above high threshold 0 - 149 [employer] [facility] Work Phone: Comment on above: . AGE DESIRABLE BORD MOLLY HIGH HIGH VERY HIGH 0 D-90 D 19 - 174 ---- ---- ----91 D- 9 Y 0 - 74 75 - 99 >/= 100 ---- 10-19 Y 0 - 89 90 - 129 >/= 130 ---- 20-24 Y 0 - 114 115 - 149 >/= 150 ---- >24 Y 0 - 149 150 - 199 200- 499 >/= 500. Venipuncture immediately after or during the administration of Metamizole may lead to falsely low results. Testing should be performed immediately prior to Metamizole dosing. Lipid Panel 54 mg/dL above high threshold 0 - 40 [employer] [facility] Work Phone: No Panel Informationon 11-01 >90 >90 [employer] [facility] Work Phone: Comment on above: CALCULATIONS OF XAVIER MATED GFR ARE PERFORMED USING THE 2020 CKD-EPI STUDY REFIT EQUATION WITHOUT THE RACE VARIABLE FOR THE IDMS-TRACEABLE CREATININE METHODS.https://jasn.asnjournals.org/content//ASN.20 52056319 TSHon 11-01-2022 TSH Qn 39.11 m[IU]/L High 0.44 - 3.98 [facility] [place], [facility] Comment on above: Result Comment: TSH testing is performed using different testing methodology at [facility] than at other system [facility]. Direct result comparisons should only be made within the same method. Performed By: #### T SH2 #### [facility] [address] [place] [address] TSH - Thyroid Stimulating Ho eyad Serumon 11-01-2022 TSH Qn 39.11 m[IU]/L above high threshold See Below [facility] Work Phone: Comment on above: Reference Range: 0.4 4 - 3.98 TSH testing is performed using different testing methodology at [facility] than at other [facility]. Direct result comparisons should only be made within the same method. Office Visit (Primary Care T xt/Forms)on 04-28-2021 Follow-up visit Diagnoses/Problems Assessed Suprapatellar bursitis of left knee (726.69) (M70.52) Orders Hyperlipidemia, unspecified hyperlipidemia type Renew: Atorvastatin Calcium 40 MG Oral Tablet; Take 1 tablet daily Hypothyroidism Renew: Levothyroxine Sodium 200 MCG Oral Tablet; Take 1 tablet daily Renew: Levoxyl 50 MCG Oral Tablet; TAKE 1 TABLET DAILY Suprapatellar bursitis of left knee Xray Knee 3 View; Status:Active; Requested for:[id number]; Laterality : Left Radiologist to Determine Optimal Study : Y What are the patient's signs and symptoms? : pain Patient Discussion/Summary Management is dictated in HPI. Chief Complaint L KNEE PAIN History of Present Illness rev labsa nd doses has hasd left knee pain and stiffness since sunday, swelling, uses ice Sterile prep 1% bupivacaine anesthesia. Suprapatellar space entered from a superior lateral approach aspiration of 60 cc of turbid yellow fluid no blood. Patient tolerated procedure and knee felt much better afterwards. 40 mg Kenalog and 1 cc bupivacaine were injected prior to withdrawal. Discussion as to etiology and management. If needed resolves over weekend no further action if he does not resolve over the next 72 hours he should have x-ray and we can possibly aspirated on Sunday, or refer to orthopedics. Active Problems Problems Class 2 severe obesity with body mass index (BMI) of 35 to 39.9 with serious comorbidity (278.01) (E66.01) Colon cancer screening (V76.51) (Z12.11) Fatty liver (571.8) (K76.0) Hyperlipidemia, unspecified hyperlipidemia type (272.4) (E78.5) Hypothyroidism (244.9) (E03.9) Obesity (278.00) (E66.9) Pre-diabetes (790.29) (R73.03) Surgical History Problems History of Myringectomy History of Tonsillectomy Family History Mother Family history of diabetes mellitus (V18.0) (Z83.3) Family history of multiple sclerosis (V17.2) (Z82.0) Father Family history of cerebrovascular accident (CVA) (V17.1) (Z82.3) Family history of chronic obstructive pulmonary disease (V17.6) (Z82.5) Sister Family history of multiple sclerosis (V17.2) (Z82.0) Social History Problems Consumes alcohol (V49.89) (Z72.89) Former smoker (V15.82) (Z87.891) No advance directives (V49.89) (Z78.9) Smokeless tobacco use (305.1) (Z72.0) Current Meds Medication NameInstruction Atorvastatin Calcium 40 MG Oral TabletTake 1 tablet daily Levothyroxine Sodium 200 MCG Oral TabletTake 1 tablet daily Levoxyl 50 MCG Oral TabletTAKE 1 TABLET DAILY. Allergies Medication Penicillins Vitals Vital Signs Recorded: [id number] 01:39PM Temperature: 97.7 F Heart Rate: 85 Systolic: 118 Diastolic: 78 Height: 5 ft 7 in Weight: 215 lb 9 oz BMI Calculated: 33.76 kg/m2 BSA Calculated: 2.09 Tobacco Use: b) No Fall Screening: a) No falls within the last year O2 Saturation: 98 Physical Exam Flex to 90 extend to 0 pain with pressure on patella, no medial or lateral joint line pain no medial or lateral ligamentous laxity negative drawer and Korey. On inspection there is moderate suprapatellar effusion. Procedure note is dictated in HPI. Signatures Electronically signed by : Avila Harris MD; Apr 28 2021 5:42PM EST (Author) Normal [employer] Tobacco Screening.on 021 Fall risk assessment a) No falls within the last year [facility] Work Phone: Tobacco use status CP b) No [facility] Work Phone: Office Visit (Primary Care T xt/Forms)on 02-07-2021 Follow-up visit Diagnoses/Problems Assessed Hyperlipidemia, unspecified hyperlipidemia type (272.4) (E78.5) Hypothyroidism (244.9) (E03.9) Class 2 severe obesity with body mass index (BMI) of 35 to 39.9 with serious comorbidity (278.01) (E66.01) Colon cancer screening (V76.51) (Z12.11) Pre-diabetes (790.29) (R73.03) Orders Colon cancer screening Gastroenterology Referral Evaluation and Treatment Evaluate AND Treat Status: Hold For - Scheduling Requested for: 07Feb2021 Hyperlipidemia, unspecified hyperlipidemia type Renew: Atorvastatin Calcium 40 MG Oral Tablet; Take 1 tablet daily Complete Blood Count; Status:Active; Requested for:07Feb2021; Comprehensive Metabolic Panel; Status:Active; Requested for:07Feb2021; Lipid Panel; Status:Active; Requested for:07Feb2021; Hypothyroidism Renew: Levothyroxine Sodium 200 MCG Oral Tablet; Take 1 tablet daily TSH - Thyroid Stimulating Hormone, Serum; Status:Active; Requested for:07Feb2021; Pre-diabetes Hemoglobin A1C; Status:Active; Requested for:07Feb2021; Provider Impressions Provider Impressions Free Text Note Form: RTC 1Y lipid panel, TSH, cmp, cbc, Aic referral for colonoscopy Reviewed heart healthy diet, maintain healthy weight, physical activity 30" most days of the week to reduce Aic, limit alcohol. Chief Complaint THYROID, HL FU REV LABS History of Present Illness Julio C comes to the office today for a yearly hypothyroidism and dyslipidemia check. Hypothyroidism?taking and tolerating medication. Most recent TSH 4.49. Increased Synthroid to 250 mcg and will recheck TSH in approximately 6 weeks. Dyslipidemia?LDL 78. 13# wt loss from 1Y ago. More active now that it's summertime AND trying to not overeat. Nonsmoker. Alcohol: 1 case per wk. No recent hosp/surgeries within the last yr. Mother w/ CRC CA (age dx @ 72Y). No melena, change in bowel habits, abdominal pain. Reviewed US P TF recommendations for colorectal cancer screening. reviewed labs w/ pt today hgbA1c 5.9% -discussed lifestyle and dietary modifications and continued weight loss. Will recheck A1c in 1 year obesity- has lost 13# since last yr thru portion control AND being more active. Has reduced alcohol consumption Review of Systems Constitutional: not feeling tired, no fever, not feeling poorly and no chills . 13# wt loss from last yr. Eyes: no eyesight problems. ENT: normal hearing. Cardiovascular: no chest pain, no palpitations and no lower extremity edema. Respiratory: no cough, no dyspnea with exertion and no dyspnea at rest. Gastrointestinal: no abdominal pain, no bloating and no blood in stools. Musculoskeletal: no arthralgias. Integumentary: no skin lesions and no rashes. Neurological: no headache, no dizziness and no numbness or tingling. Active Problems Problems Fatty liver (571.8) (K76.0) Hyperlipidemia, unspecified hyperlipidemia type (272.4) (E78.5) Hypothyroidism (244.9) (E03.9) Obesity (278.00) (E66.9) Surgical History Problems History of Myringectomy History of Tonsillectomy Family History Mother Family history of diabetes mellitus (V18.0) (Z83.3) Family history of multiple sclerosis (V17.2) (Z82.0) Father Family history of cerebrovascular accident (CVA) (V17.1) (Z82.3) Family history of chronic obstructive pulmonary disease (V17.6) (Z82.5) Sister Family history of multiple sclerosis (V17.2) (Z82.0) Social History Problems Consumes alcohol (V49.89) (Z72.89) Former smoker (V15.82) (Z87.891) No advance directives (V49.89) (Z78.9) Smokeless tobacco use (305.1) (Z72.0) Current Meds Medication NameInstruction Atorvastatin Calcium 40 MG Oral TabletTake 1 tablet daily Levothyroxine Sodium 200 MCG Oral TabletTake 1 tablet daily Levoxyl 50 MCG Oral TabletTAKE 1 TABLET DAILY. Allergies Medication Penicillins Vitals Vital Signs Recorded: 07Feb2021 08:43AM Temperature: 97.3 F Heart Rate: 90 Systolic: 122 Diastolic: 78 Height: 5 ft 7 in Weight: 216 lb 7 oz BMI Calculated: 33.9 kg/m2 BSA Calculated: 2.09 Tobacco Use: a) Yes Patient encouraged to stop using tobacco products: Yes Fall Screening: a) No falls within the last year O2 Saturation: 98 Physical Exam Constitutional - Well developed, well nourished, well hydrated and no acute distress. Vital signs reviewed. Neck - Thyroid not enlarged and no palpable nodules. Pulmonary - No grunting, flaring or retractions. No rales or wheezing. Good air exchange. Cardiovascular - Regular rate and rhythm. No significant murmur. No significant lower extremity edema. Abdomen - Soft, non-tender, no masses. No hepatomegaly or splenomegaly. Normal active bowel sounds. Skin - No significant rash or lesions. Psychiatric - Judgment and insight: Intact. Mood and affect: Normal. Results/Data Hemoglobin [id number] 07:14[facility] Test NameResultFlagReference Hemoglobin A1C, Level5.9 % Diagnosis of Diabetes-Adults Non-Diabetic: < or = 5.6% Increased risk for de (more content not included)... Normal [employer] Tobacco Screening.on 021 Fall risk assessment a) No falls within the last year [facility] [employer] [facility] Work Phone: Tobacco Screening. a) Yes [employer] [facility] Work Phone: Tobacco Screening. Yes [employer] [facility] Work Phone: CBC AND DIFFERENTIALon 01-27 Basophils (Bld) [#/Vol] 0.00 10*3/uL Normal 0.00 - 0.10 [facility] Comment on above: Performed By: #### C BCDF #### [address] [address] Basophils/100 WBC (Bld) 0.9 % Normal 0.0 - 2.0 [facility] Comment on above: Performed By: #### C BCDF #### [address] [address] Eosinophils (Bld) [#/Vol] 0.20 10*3/uL Normal 0.00 - 0.70 [facility] Comment on above: Performed By: #### C BCDF #### [address] [address] Eosinophils/100 WBC (Bld) 3.9 % Normal 0.0 - 6.0 [facility] Comment on above: Performed By: #### C BCDF #### [address] [address] Erythrocyte distribution width (RBC) [Ratio] 12.9 % Normal 11.5 - 14.5 [facility] Comment on above: Performed By: #### C BCDF #### [address] [address] Hematocrit (Bld) [Volume fraction] 42.6 % Normal 41.0 - 52.0 [facility] Comment on above: Performed By: #### C BCDF #### [address] [address] Hemoglobin (Bld) [Mass/Vol] 14.3 g/dL Normal 13.5 - 17.5 [facility] Comment on above: Performed By: #### C BCDF #### [address] [address] Lymphocytes (Bld) [#/Vol] 1.40 10*3/uL Normal 1.20 - 4.80 [facility] Comment on above: Performed By: #### C BCDF #### [address] [address] Lymphocytes/100 WBC (Bld) 25.6 % Normal 13.0 - 44.0 [facility] Comment on above: Performed By: #### C BCDF #### [address] [address] MCHC (RBC) [Mass/Vol] 33.6 g/dL Normal 32.0 - 36.0 [facility] Comment on above: Performed By: #### C BCDF #### [address] [address] MCV (RBC) [Entitic vol] 94 fL Normal 80 - 100 [facility] Comment on above: Performed By: #### C BCDF #### [address] [address] Monocytes (Bld) [#/Vol] 0.40 10*3/uL Normal 0.10 - 1.00 [facility] Comment on above: Performed By: #### C BCDF #### [address] [address] Monocytes/100 WBC (Bld) 7.8 % Normal 2.0 - 10.0 [facility] Comment on above: Performed By: #### C BCDF #### [address] [address] Neutrophils (Bld) [#/Vol] 3.40 10*3/uL Normal 1.20 - 7.70 [facility] Comment on above: Result Comment: Perc ent differential counts (%) should be interpreted in the context of the absolute cell counts (cells/L). Performed By: #### C BCDF #### [address] [address] Neutrophils/100 WBC (Bld) 61.8 % Normal 40.0 - 80.0 [facility] Comment on above: Performed By: #### C BCDF #### [address] [address] NUCLEATED RBC 0.1 /100 WBC Normal [facility] Comment on above: Performed By: #### C BCDF #### [address] [address] Platelets (Bld) [#/Vol] 194 10*3/uL Normal 150 - 450 [facility] Comment on above: Performed By: #### C BCDF #### [address] [address] RBC 4.51 x10E12/L Normal 4.50 - 5.90 [facility] Comment on above: Performed By: #### C BCDF #### [address] [address] WBC (Bld) [#/Vol] 5.4 10*3/uL Normal 4.4 - 11.3 [facility] Comment on above: Performed By: #### C BCDF #### [address] [address] COMPREHENSIVE PANELon 2020 Albumin [Mass/Vol] 4.4 g/dL Normal 3.4 - 5.0 [facility] Comment on above: Performed By: #### C MP #### [address] [address] ALP [Catalytic activity/Vol] 59 U/L Normal 33 - 120 [facility] Comment on above: Performed By: #### C MP #### [address] [address] ALT [Catalytic activity/Vol] 29 U/L Normal 10 - 52 [facility] Comment on above: Result Comment: Karina ents treated with Sulfasalazine may generate falsely decreased results for ALT. Performed By: #### C MP #### [place] [address] Anion gap [Moles/Vol] 12 mmol/L Normal 10 - 20 [facility] Comment on above: Performed By: #### C MP #### [place] [address] AST [Catalytic activity/Vol] 22 U/L Normal 9 - 39 [facility] Comment on above: Performed By: #### C MP #### [address] [address] Bilirubin [Mass/Vol] 0.6 mg/dL Normal 0.0 - 1.2 [facility] Comment on above: Performed By: #### C MP #### [address] [address] Calcium [Mass/Vol] 8.9 mg/dL Normal 8.6 - 10.3 [facility] Comment on above: Performed By: #### C MP #### [address] [address] Chloride [Moles/Vol] 104 mmol/L Normal 98 - 107 [facility] Comment on above: Performed By: #### C MP #### [address] [address] Creatinine [Mass/Vol] 0.77 mg/dL Normal 0.50 - 1.30 [facility] Comment on above: Performed By: #### C MP #### [place] [address] GFR- AM. >60 Normal >60 [facility] Comment on above: Result Comment: CALC ULATIONS OF ESTIMATED GFR ARE PERFORMED USING THE MDRD STUDY EQUATION FOR THE IDMS-TRACEABLE CREATININE METHODS. CLIN CHEM 2007;53:766-72 Performed By: #### C MP #### [address] [address] GFR-NON AM. >60 Normal >60 [facility] Comment on above: Performed By: #### C MP #### [address] [address] Glucose [Mass/Vol] 119 mg/dL High 74 - 99 [facility] Comment on above: Performed By: #### C MP #### [address] [address] HCO3 (Bld) [Moles/Vol] 24 mmol/L Normal 21 - 32 [facility] Comment on above: Performed By: #### C MP #### [address] [address] Potassium [Moles/Vol] 4.1 mmol/L Normal 3.5 - 5.3 [facility] Comment on above: Performed By: #### C MP #### [address] [address] Protein [Mass/Vol] 7.5 g/dL Normal 6.4 - 8.2 [facility] Comment on above: Performed By: #### C MP #### [address] [address] Sodium [Moles/Vol] 136 mmol/L Normal 136 - 145 [facility] Comment on above: Performed By: #### C MP #### [address] [address] Urea nitrogen [Mass/Vol] 15 mg/dL Normal 6 - 23 [facility] Comment on above: Performed By: #### C MP #### [address] [address] Complete Blood Count + Diffe rentialon 01-27-2021 Basophils/100 WBC (Bld) 0.9 % 0.0 - 2.0 -[employer] [facility] Work Phone: Erythrocyte distribution width (RBC) [Ratio] 12.9 % See Below [facility] Work Phone: Comment on above: Reference Range: 11. 5 - 14.5 Hematocrit (Bld) [Volume fraction] 42.6 % See Below [facility] Work Phone: Comment on above: Reference Range: 41. 0 - 52.0 Hemoglobin (Bld) [Mass/Vol] 14.3 g/dL See Below [facility] Work Phone: Comment on above: Reference Range: 13. 5 - 17.5 Lymphocytes/100 WBC (Bld) 25.6 % See Below [facility] Work Phone: Comment on above: Reference Range: 13. 0 - 44.0 MCHC (RBC) [Mass/Vol] 33.6 g/dL See Below [facility] Work Phone: Comment on above: Reference Range: 32. 0 - 36.0 MCV (RBC) [Entitic vol] 94 fL 80 - 100 [facility] Work Phone: Monocytes/100 WBC (Bld) 7.8 % 2.0 - 10.0 [facility] Work Phone: Neutrophils/100 WBC (Bld) 61.8 % See Below [facility] Work Phone: Comment on above: Reference Range: 40. 0 - 80.0 Platelets (Bld) [#/Vol] 194 10*3/uL 150 - 450 [facility] Work Phone: RBC (Bld) [#/Vol] 4.51 {x10E12/L} See Below [facility] Work Phone: Comment on above: Reference Range: 4.5 0 - 5.90 WBC (Bld) [#/Vol] 5.4 10*3/uL 4.4 - 11.3 [facility] Work Phone: Complete Blood Count + Differential 0.00 {x10E9/L} See Below [facility] Work Phone: Comment on above: Reference Range: 0.0 0 - 0.10 Complete Blood Count + Differential 0.20 {x10E9/L} See Below [facility] Work Phone: Comment on above: Reference Range: 0.0 0 - 0.70 Complete Blood Count + Differential 0.40 {x10E9/L} See Below [facility] Work Phone: Comment on above: Reference Range: 0.1 0 - 1.00 Complete Blood Count + Differential 1.40 {x10E9/L} See Below [facility] Work Phone: Comment on above: Reference Range: 1.2 0 - 4.80 Complete Blood Count + Differential 3.40 {x10E9/L} See Below [facility] Work Phone: Comment on above: Reference Range: 1.2 0 - 7.70 Percent differential counts (%) should be interpreted in the context of the absolute cell counts (cells/L). Complete Blood Count + Differential 3.9 % 0.0 - 6.0 [facility] Work Phone: Complete Blood Count + Differential 0.1 {/100_WBC} [facility] Work Phone: HEMOGLOBIN A1Con 01-27-2021 Glucose [Mass/Vol] 123 mg/dL Normal [facility] Comment on above: Performed By: #### H BA1E #### [facility] [address] [place] [address] HbA1c (Bld) [Mass fraction] 5.9 % Normal [facility] Comment on above: Result Comment: Diag nosis of Diabetes-Adults Non-Diabetic: < or = 5.6% Increased risk for developing diabetes: 5.7-6.4% Diagnostic of diabetes: > or = 6.5% . Monitoring of Diabetes Age (y) Therapeutic Goal (%) Adults: >18 <7.0 Pediatrics: 13-18 <7.5 7-12 <8.0 0- 6 7.5-8.5 [employer]. Diabetes Care 33(S1), Sep 2009. Performed By: #### H BA1E #### [facility] [address] [place] [address] Hemoglobin A1Con 01-27-2021 Glucose [Mass/Vol] 123 mg/dL [facility] Work Phone: HbA1c (Bld) [Mass fraction] 5.9 % [facility] Work Phone: Comment on above: Diagnosis of Diabete s-Adults Non-Diabetic: < or = 5.6% Increased risk for developing diabetes: 5.7-6.4% Diagnostic of diabetes: > or = 6.5%. Monitoring of Diabetes Age (y) Therapeutic Goal (%) Adults: >18 <7.0 Pediatrics: 13-18 <7.5 7-12 <8.0 0- 6 7.5-8.5 [employer]. Diabetes Care 33(S1), Sep 2009. LIPID PANEL (CORONARY RISK 2 )on 01-27-2021 Cholesterol [Mass/Vol] 150 mg/dL Normal 0 - 199 [facility] Comment on above: Result Comment: . AGE DESIRABLE BORDERLINE HIGH HIGH 0-19 Y 0 - 169 170 - 199 >/= 200 20-24 Y 0 - 189 190 - 224 >/= 225 >24 Y 0 - 199 200 - 239 >/= 240 All ranges are based on fasting samples. Specific therapeutic targets will vary based on patient-specific cardiac risk. . Pediatric guidelines reference:Pediatrics 2011, 128(S5). Adult guidelines reference: NCEP ATPIII Guidelines, BUD 2001, 258:2486-97 . Venipuncture immediately after or during the administration of Metamizole may lead to falsely low results. Testing should be performed immediately prior to Metamizole dosing. Performed By: #### L IPID #### [facility] [address] [place] [address] Cholesterol in HDL [Mass/Vol] 45.0 mg/dL Normal [facility] Comment on above: Result Comment: . AGE VERY LOW LOW NORMAL HIGH 0-19 Y < 35 < 40 40-45 ---- 20-24 Y ---- < 40 >45 ---- >24 Y ---- < 40 40-60 >60 . Performed By: #### L IPID #### [address] [address] Cholesterol in LDL [Mass/Vol] 78 mg/dL Normal 0 - 99 [facility] Comment on above: Result Comment: . NEAR BORD AGE DESIRABLE OPTIMAL HIGH HIGH VERY HIGH 0-19 Y 0 - 109 --- 110-129 >/= 130 ---- 20-24 Y 0 - 119 --- 120-159 >/= 160 ---- >24 Y 0 - 99 100-129 130-159 160-189 >/=190 . Performed By: #### L IPID #### [address] [address] Cholesterol in VLDL [Mass/Vol] 27 mg/dL Normal 0 - 40 [facility] Comment on above: Performed By: #### L IPID #### [address] [address] Cholesterol.total /Cholesterol in HDL [Mass ratio] 3.3 {ratio} Normal [facility] Comment on above: Result Comment: REF VALUES DESIRABLE < 3.4 HIGH RISK > 5.0 Performed By: #### L IPID #### [address] [address] Triglyceride [Mass/Vol] 137 mg/dL Normal 0 - 149 [facility] Comment on above: Result Comment: . AGE DESIRABLE BORDERLINE HIGH HIGH VERY HIGH 0 D-90 D 19 - 174 ---- ---- ---- 91 D- 9 Y 0 - 74 75 - 99 >/= 100 ---- 10-19 Y 0 - 89 90 - 129 >/= 130 ---- 20-24 Y 0 - 114 115 - 149 >/= 150 ---- >24 Y 0 - 149 150 - 199 200- 499 >/= 500 . Venipuncture immediately after or during the administration of Metamizole may lead to falsely low results. Testing should be performed immediately prior to Metamizole dosing. Performed By: #### L IPID #### [facility] [address] [place] [address] Laboratory - Chemistry and C hemistry - challengeon 01-27-2021 Albumin BCP dye [Mass/Vol] 4.4 g/dL 3.4 - 5.0 [facility] Work Phone: ALP [Catalytic activity/Vol] 59 U/L 33 - 120 [facility] Work Phone: ALT With P-5'-P [Catalytic activity/Vol] 29 U/L 10 - 52 [facility] Work Phone: Comment on above: Patients treated wit h Sulfasalazine may generate falsely decreased results for ALT. Anion gap [Moles/Vol] 12 mmol/L 10 - 20 [facility] Work Phone: AST With P-5'-P [Catalytic activity/Vol] 22 U/L 9 - 39 [facility] Work Phone: Bilirubin [Mass/Vol] 0.6 mg/dL 0.0 - 1.2 [facility] Work Phone: Calcium [Mass/Vol] 8.9 mg/dL 8.6 - 10.3 [facility] Work Phone: Chloride [Moles/Vol] 104 mmol/L 98 - 107 [facility] Work Phone: CO2 [Moles/Vol] 24 mmol/L 21 - 32 [facility] Work Phone: Creatinine [Mass/Vol] 0.77 mg/dL See Below [facility] Work Phone: Comment on above: Reference Range: 0.5 0 - 1.30 Glucose [Mass/Vol] 119 mg/dL above high threshold 74 - 99 [facility] Work Phone: Potassium [Moles/Vol] 4.1 mmol/L 3.5 - 5.3 [facility] Work Phone: Protein [Mass/Vol] 7.5 g/dL 6.4 - 8.2 [facility] [employer] [facility] Work Phone: Sodium [Moles/Vol] 136 mmol/L 136 - 145 [facility] Work Phone: Urea nitrogen [Mass/Vol] 15 mg/dL 6 - 23 [facility] [employer] [facility] Work Phone: Lipid Panelon 01-27-2021 Cholesterol [Mass/Vol] 150 mg/dL 0 - 199 [facility] Work Phone: Comment on above: . AGE DESIRABLE BORD MOLLY HIGH HIGH 0-19 Y 0 - 169 170 - 199 >/= 200 20-24 Y 0 - 189 190 - 224 >/= 225 >24 Y 0 - 199 200 - 239 >/= 240 All ranges are based on fasting samples. Specific therapeutic targets will vary based on patient-specific cardiac risk.. Pediatric guidelines reference:Pediatrics 2011, 128(S5). Adult guidelines reference: NCEP ATPIII Guidelines, BUD 2001, 258:2486-97. Venipuncture immediately after or during the administration of Metamizole may lead to falsely low results. Testing should be performed immediately prior to Metamizole dosing. Cholesterol in HDL [Mass/Vol] 45.0 mg/dL [facility] Work Phone: Comment on above: . AGE VERY LOW LOW N ORMAL HIGH 0-19 Y < 35 < 40 40-45 ---- 20- 24 Y ---- < 40 >45 ---- >24 Y ---- < 40 40-60 >60. Cholesterol in LDL [Mass/Vol] 78 mg/dL 0 - 99 [facility] Work Phone: Comment on above: . NEAR BORD AGE ROSARIO RABLE OPTIMAL HIGH HIGH VERY HIGH 0-19 Y 0 - 109 --- 110-129 >/= 130 ---- 20-24 Y 0 - 119 --- 120-159 >/= 160 ---- >24 Y 0 - 99 100-129 130-159 160-189 >/=190. Cholesterol.total /Cholesterol in HDL [Mass ratio] 3.3 {ratio} [employer] [facility] Work Phone: Comment on above: REF VALUESDESIRABLE < 3.4HIGH RISK > 5.0 Triglyceride [Mass/Vol] 137 mg/dL 0 - 149 [employer] [facility] Work Phone: Comment on above: . AGE DESIRABLE BORD MOLLY HIGH HIGH VERY HIGH 0 D-90 D 19 - 174 ---- ---- ----91 D- 9 Y 0 - 74 75 - 99 >/= 100 ---- 10-19 Y 0 - 89 90 - 129 >/= 130 ---- 20-24 Y 0 - 114 115 - 149 >/= 150 ---- >24 Y 0 - 149 150 - 199 200- 499 >/= 500. Venipuncture immediately after or during the administration of Metamizole may lead to falsely low results. Testing should be performed immediately prior to Metamizole dosing. Lipid Panel 27 mg/dL 0 - 40 [employer] [facility] Work Phone: No Panel Informationon 01-27 >60 >60 [employer] [facility] Work Phone: Comment on above: CALCULATIONS OF XAVIER MATED GFR ARE PERFORMED USING THE MDRD STUDY EQUATION FOR THE IDMS-TRACEABLE CREATININE METHODS. CLIN CHEM 2007;53:766-72 TSHon 01-27-2021 TSH Qn 4.49 m[IU]/L High 0.44 - 3.98 [facility] Comment on above: Result Comment: TSH testing is performed using different testing methodology at [facility] than at other [facility]. Direct result comparisons should only be made within the same method. Performed By: #### T SH2 #### [place] [id number] [place] [id number] TSH - Thyroid Stimulating Ho rmone, Serumon 01-27-2021 TSH Qn 4.49 m[IU]/L above high threshold See Below [employer] [facility] Work Phone: Comment on above: Reference Range: 0.4 4 - 3.98 TSH testing is performed using different testing methodology at [facility] than at other [facility]. Direct result comparisons should only be made within the same method. Auto Diffon 11-01-2018 Basophils (Bld) [#/Vol] 0.1 E3/mcL Normal 0.0-0.2 [facility] Comment on above: Order Comment: Order Added by Discern Expert. Performed By: #### 2 [id number] #### [facility] [employer] [address] [place] [address] Basophils/100 WBC (Bld) 1.5 % Normal 0.0-2.0 [facility] Comment on above: Order Comment: Order Added by Cheri Expert. Performed By: #### 2 [id number] #### [facility] [employer] [address] [place] [address] Eos Absolute 0.2 E3/mcL Normal 0.0-0.7 [facility] Comment on above: Order Comment: Order Added by Cheri Expert. Performed By: #### 2 [id number] #### [facility] [employer] [address] [place] [address] Eosinophils/100 WBC (Bld) 4.0 % Normal 0.0-11.0 [facility] Comment on above: Order Comment: Order Added by Cheri Expert. Performed By: #### 2 [id number] #### [facility] [employer] [address] [place] [address] Lymphocytes (Bld) [#/Vol] 1.6 E3/mcL Normal 1.2-3.4 [facility] Comment on above: Order Comment: Order Added by Cheri Expert. Performed By: #### 2 [id number] #### [facility] [employer] [address] [place] [address] Lymphocytes/100 WBC (Bld) 26.8 % Normal 20.0-55.0 [facility] Comment on above: Order Comment: Order Added by Cheri Expert. Performed By: #### 2 [id number] #### [facility] [employer] [address] [place] [address] [place] Absolute 0.5 E3/mcL Normal 0.0-0.7 [facility] Comment on above: Order Comment: Order Added by Discern Expert. Performed By: #### 2 [id number] #### [facility] [employer] [address] [place] [address] Monocytes/100 WBC (Bld) 8.1 % Normal 0.0-10.0 [facility] Comment on above: Order Comment: Order Added by Discern Expert. Performed By: #### 2 [id number] #### [facility]ERN [employer] [facility] [place] [id number] Neutro Absolute 3.5 E3/mcL Normal 1.4-6.5 [facility] Comment on above: Order Comment: Order Added by Discern Expert. Performed By: #### 2 [id number] #### [facility] [employer] [address] [place], [place] [id number] Neutro Auto 59.6 % Normal 37.0-75.0 [facility] Comment on above: Order Comment: Order Added by Discern Expert. Performed By: #### 2 [id number] #### [facility] [employer] [address] [place], [place] [id number] CBC w/ Auto Diffon 9 Erythrocyte distribution width (RBC) [Ratio] 14.5 % Normal 11.5-14.5 [facility] Comment on above: Performed By: #### 2 [id number] #### [facility] [employer] [address] [place], [place] [id number] Hematocrit (Bld) [Volume fraction] 41.8 % Low 42.0-52.0 [facility] Comment on above: Performed By: #### 2 [id number] #### [facility] [employer] [address] [place], [place] [id number] Hemoglobin (Bld) [Mass/Vol] 13.9 g/dL Normal 13.5-18.0 [facility] Comment on above: Performed By: #### 2 [id number] #### [facility] [employer] [address] [place] [address] MCH (RBC) [Entitic mass] 32.2 pg High 27.0-31.0 [facility] Comment on above: Performed By: #### 2 [id number] #### [facility] [employer] [address] [place], [place] [address] MCHC (RBC) [Mass/Vol] 33.3 g/dL Normal 33.0-37.0 [facility] Comment on above: Performed By: #### 2 [id number] #### [facility] [employer] [facility] [place] [address] MCV (RBC) [Entitic vol] 96.7 fL Normal 78.0-100.0 [facility] Comment on above: Performed By: #### 2 [id number] #### [facility]ERN [facility] [place] [address] Platelet mean volume (Bld) [Entitic vol] 9.3 fL Normal 7.4-11.0 [facility] Comment on above: Performed By: #### 2 [id number] #### [facility] [employer] [address] [place] [address] Platelets (Bld) [#/Vol] 202 E3/mcL Normal 130-400 [facility] Comment on above: Performed By: #### 2 [id number] #### [facility] [address] [place] [address] RBC (Bld) [#/Vol] 4.32 E6/mcL Normal 3.90-6.10 [facility] Comment on above: Performed By: #### 2 [id number] #### [facility]ERNBeto Felix[facility] [address] [place] [address] WBC (Bld) [#/Vol] 5.9 E3/mcL Normal 3.6-11.0 [facility] Comment on above: Performed By: #### 2 [id number] #### [facility]ERN [facility]vira[facility] [address] [place] [address] CMPon 11-01-2018 Albumin [Mass/Vol] 5.2 g/dL High 3.4-5.0 [facility] Comment on above: Performed By: #### 2 [id number] #### [facility]ERN [employer] [address] [place] [address] Albumin/Globulin [Mass ratio] 1.7 {ratio} Normal 1.1-1.9 [facility] Comment on above: Performed By: #### 2 [id number] #### [facility]ERN [employer] [address] [place] [address] Alk Phos 52 Int._Unit/L Normal 33-120 [facility] Comment on above: Performed By: #### 2 [id number] #### [facility] [employer] [address] [place] [address] ALT [Catalytic activity/Vol] 81 Int._Unit/L High 10-52 [facility] Comment on above: Performed By: #### 2 [id number] #### [facility] [employer] [address] [place] [address] Anion gap [Moles/Vol] 10 mmol/L Normal 10-20 [facility] Comment on above: Performed By: #### 2 [id number] #### [facility] [employer] [address] [place] [address] AST [Catalytic activity/Vol] 69 Int._Unit/L High 9-39 [facility] Comment on above: Performed By: #### 2 [id number] #### [facility] [employer] [address] [place] [address] Bili Total 0.63 mg/dL Normal 0.00-1.20 [facility] Comment on above: Performed By: #### 2 689011 #### [facility] [employer] [address] [place] [address] Calcium [Mass/Vol] 9.8 mg/dL Normal 8.6-10.3 [facility] Comment on above: Performed By: #### 2 [id number] #### [facility]ERN [employer] [address] [place] [address] 45002 Chloride [Moles/Vol] 106 mmol/L Normal 98-107 [facility] Comment on above: Performed By: #### 2 [id number] #### [facility] [employer] [address] [place] [address] 59010 CO2 [Moles/Vol] 28.0 mmol/L Normal 21.0-32.0 [facility] Comment on above: Performed By: #### 2 [id number] #### [facility] [employer] [address] [place] [address] 61062 Creatinine [Mass/Vol] 0.9 mg/dL Normal 0.5-1.3 [facility] Comment on above: Performed By: #### 2 [id number] #### [facility] [address] [place] [address] 13577 Globulin (S) [Mass/Vol] 3.0 g/dL Normal 2.0-4.0 [facility] Comment on above: Performed By: #### 2 [id number] #### [facility] [employer] [address] [place] [address] 72671 Glucose [Mass/Vol] 117 mg/dL High 70-99 [facility] Comment on above: Performed By: #### 2 [id number] #### [facility] [employer] [address] [place] [address] 76361 Potassium [Moles/Vol] 5.1 mmol/L Normal 3.5-5.3 [facility] Comment on above: Performed By: #### 2 [id number] #### [facility] [employer] [address] [place] [address] 05161 Protein [Mass/Vol] 8.2 g/dL Normal 6.4-8.2 [facility] Comment on above: Performed By: #### 2 [id number] #### [facility] [employer] [address] [place] [address] 09288 Sodium [Moles/Vol] 138 mmol/L Normal 136-145 [facility] Comment on above: Performed By: #### 2 [id number] #### [facility] [employer] [address] [place] [address] 95411 Urea nitrogen [Mass/Vol] 24 mg/dL High 6-23 [facility] Comment on above: Performed By: #### 2 [id number] #### [facility] [employer] [address] [place] [address] 57169 Urea nitrogen/Creatini ne [Mass ratio] 26.7 ratio Normal 5.4-30.0 [facility] Comment on above: Performed By: #### 2 [id number] #### [facility] [employer] [address] [place] [address] 02951 Lipid Profileon 11-01-2018 Cholesterol [Mass/Vol] 247 mg/dL High 0-199 [facility] Comment on above: Result Comment: TOTA L CHOLEESTEROL: <200 NORMAL 200 - 239 BORDERLINE HIGH >240 HIGH Performed By: #### 3 [id number] #### [facility] [employer] [address] [place] [address] 11197 Cholesterol in HDL [Mass/Vol] 38 mg/dL Low 40-60 [facility] Comment on above: Performed By: #### 3 [id number] #### [facility] [employer] [address] [place] [address] 42664 Cholesterol in LDL [Mass/Vol] 167 mg/dL High 0-130 [facility] Comment on above: Result Comment: <100 OPTIMAL 100-129 NEAR / ABOVE OPTIMAL 130-159 BORDERLINE HIGH 160-189 HIGH >190 VERY HIGH CALC LDL NOT VALID WHEN TRIGLYCERIDE IS >400 MG/DL Performed By: #### 3 [id number] #### [facility] [employer] [address] [place] [address] 52071 Cholesterol in VLDL [Mass/Vol] 42 mg/dL High 0-40 [facility] Comment on above: Performed By: #### 3 [id number] #### [facility] [employer] [address] [place] [address] 62312 Triglyceride [Mass/Vol] 208 mg/dL High 0-149 [facility] Comment on above: Result Comment: AGE DESIRABLE BORDERLINE HIGH 91 D - 9 Y 0 - 74 75 - 99 > 100 10 - 19 Y 0 - 89 90 - 129 > 130 20 -24 Y 0 - 114 115 - 149 > 150 > 25 0 - 149 150 - 199 200 - 499 Performed By: #### 3 [id number] #### [facility] [employer] [address] [place] [address] 67421 TSHon 11-01-2018 TSH Qn 8.26 mcIU/mL High 0.30-5.60 [facility] Comment on above: Performed By: #### 2 [id number] #### [facility] [employer] [address] [place] [address] 16210 eGFRon 11-01-2018 GFR/1.73 sq M predicted among non-blacks MDRD (S/P/Bld) [Vol rate/Area] mL/min/{1.73_m2} Normal [facility] Comment on above: Order Comment: Order added by Discern Expert. Performed By: #### 1 [id number] #### [facility] [address] [place] [address] 82094 Vital Signs Date Time Vital Sign Value Performing Clinician Facility 07-02-2025 15:42-0400 Body mass index (BMI) [Ratio] 35.71 kg/m2 Avila Harris MD Work Phone: [facility] 07-02-2025 15:42-0400 Body weight 103.42 kg Avila Harris MD Work Phone: [facility] 07-02-2025 15:42-0400 Diastolic blood pressure 80 mm[Hg] Avila Harris MD Work Phone: [facility] 07-02-2025 15:42-0400 Heart rate 96 /min Avila Harris MD Work Phone: [facility] 07-02-2025 15:42-0400 SaO2% (BldA) [Mass fraction] 97 % Avila Harris MD Work Phone: [facility] 07-02-2025 15:42-0400 Systolic blood pressure 130 mm[Hg] Avila Harris MD Work Phone: [facility] 02-05-2024 15:03-0400 Body height 170.2 cm Avila Harris MD Work Phone: [facility] 02-05-2024 15:03-0400 Body mass index (BMI) [Ratio] 35.13 kg/m2 Avila Harris MD Work Phone: [facility] 02-05-2024 15:03-0400 Body weight 101.74 kg Avila Harris MD Work Phone: [facility] 02-05-2024 15:03-0400 Diastolic blood pressure 82 mm[Hg] Avila Harris MD Work Phone: [facility] 02-05-2024 15:03-0400 Heart rate 94 /min Avila Harris MD Work Phone: [facility] 02-05-2024 15:03-0400 SaO2% (BldA) [Mass fraction] 95 % Avila Harris MD Work Phone: [facility] 02-05-2024 15:03-0400 Systolic blood pressure 140 mm[Hg] Avila Harris MD Work Phone: [facility] 02-15-2023 13:43-0400 Body height 170.2 cm Avila Harris MD Work Phone: [facility] 02-15-2023 13:43-0400 Body mass index (BMI) [Ratio] 36.37 kg/m2 Avila Harris MD Work Phone: [facility] 02-15-2023 13:43-0400 Body weight 105.33 kg Avila Harris MD Work Phone: [facility] 02-15-2023 13:43-0400 Diastolic blood pressure 72 mm[Hg] Avila Harris MD Work Phone: [facility] 02-15-2023 13:43-0400 Heart rate 99 /min Avila Harris MD Work Phone: [facility] 02-15-2023 13:43-0400 SaO2% (BldA) [Mass fraction] 93 % Avila Harris MD Work Phone: [facility] 02-15-2023 13:43-0400 Systolic blood pressure 130 mm[Hg] Avila Harris MD Work Phone: [facility] 11-06-2022 13:42-0500 Body height 170.2 cm Avila Harris MD Work Phone: [facility] 11-06-2022 13:42-0500 Body mass index (BMI) [Ratio] 36.65 kg/m2 Avila Harris MD Work Phone: [facility] 11-06-2022 13:42-0500 Body weight 106.14 kg Avila Harris MD Work Phone: [facility] 11-06-2022 13:42-0500 Diastolic blood pressure 78 mm[Hg] Avila Harris MD Work Phone: [facility] 11-06-2022 13:42-0500 Heart rate 72 /min Avila Harris MD Work Phone: [facility] 11-06-2022 13:42-0500 SaO2% (BldA) [Mass fraction] 98 % Avila aHrris MD Work Phone: [facility] 11-06-2022 13:42-0500 Systolic blood pressure 142 mm[Hg] Avila Harris MD Work Phone: [facility] 04-28-2021 13:39-0400 Body height 170.18 cm Avila Harris Work Phone: [facility] Work Phone: 04-28-2021 13:39-0400 Body mass index (BMI) [Ratio] 33.76 kg/m2 Avila Harris Work Phone: [facility] Work Phone: 04-28-2021 13:39-0400 Body surface area Derived from formula 2.09 m2 Avila Harris Work Phone: [facility] Work Phone: 04-28-2021 13:39-0400 Body temperature 97.7 [degF] Avila Harris Work Phone: [facility] [facility] Work Phone: 04-28-2021 13:39-0400 Body weight 97.78 kg Avila Harris Work Phone: [facility] [facility] Work Phone: 04-28-2021 13:39-0400 Diastolic blood pressure 78 mm[Hg] Avila Harris Work Phone: [facility] [facility] Work Phone: 04-28-2021 13:39-0400 Heart rate 85 /min Avila Harris Work Phone: [facility] [facility] Work Phone: 04-28-2021 13:39-0400 SaO2% (BldA) [Mass fraction] 98 % Avila Harris Work Phone: [facility] Work Phone: 04-28-2021 13:39-0400 Systolic blood pressure 118 mm[Hg] Avila Harris Work Phone: [facility] Work Phone: 02-07-2021 08:43-0400 Body height 170.18 cm Avila Harris Work Phone: [facility] Work Phone: 02-07-2021 08:43-0400 Body mass index (BMI) [Ratio] 33.9 kg/m2 Avila Harris Work Phone: [facility] Work Phone: 02-07-2021 08:43-0400 Body surface area Derived from formula 2.09 m2 Avila Harris Work Phone: [facility] Work Phone: 02-07-2021 08:43-0400 Body temperature 97.3 [degF] Avila Harris Work Phone: [facility] [employer] [facility] Work Phone: 02-07-2021 08:43-0400 Body weight 98.18 kg Avila Harris Work Phone: [facility] [employer] [facility] Work Phone: 02-07-2021 08:43-0400 Diastolic blood pressure 78 mm[Hg] Avila Harris Work Phone: [facility] Work Phone: 02-07-2021 08:43-0400 Heart rate 90 /min Avila Harris Work Phone: [facility] Work Phone: 02-07-2021 08:43-0400 SaO2% (BldA) [Mass fraction] 98 % Avila Harris Work Phone: [facility] Work Phone: 02-07-2021 08:43-0400 Systolic blood pressure 122 mm[Hg] Avila Harris Work Phone: [facility] Work Phone: Encounters Encounter Date Encounter Type Care Provider Facility Start: 07-29-2025 ambulatory Avila Harris [facility] Start: 07-02-2025 End: 07-02-2025 Office outpatient visit 15 minutes Avila Harris MD Work Phone: [facility] Comment on above: Fatty liver (Primary Dx); 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 Comment on above: Acute pain of right knee (Primary Dx); Mixed hyperlipidemia Start: 09-21-2023 End: 09-21-2023 Subsequent hospital visit by physician [address] Comment on above: Fatty liver Start: 09-21-2023 End: 09-21-2023 ambulatory AVILA HARRIS [facility] Start: 02-15-2023 End: 02-15-2023 Office outpatient visit 25 minutes Avila Harris MD Work Phone: [facility] Comment on above: Hypothyroidism due t o Sherman's thyroiditis (Primary Dx); Fatty liver; Class 2 severe obesity with body mass index (BMI) of 35 to 39.9 with serious comorbidity (CMS/HCC) Start: 11-06-2022 End: 11-06-2022 Office outpatient visit 25 minutes Avila Harris MD Work Phone: 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; Pre-diabetes; Mixed hyperlipidemia Start: 11-02-2022 Chart Update Avila dhillon Work Phone: [facility] Work Phone: Start: 11-01-2022 Chart Update Avila dhillon Work Phone: [facility] Work Phone: Start: 04-28-2021 Office outpatient vi sit 15 minutes Avila Harris Work Phone: [facility] Work Phone: Start: 02-07-2021 Office outpatient vi sit 25 minutes Avila Harris Work Phone: [facility] Work Phone: Start: 01-28-2021 AUDIT Avila Teodoro dhillon Work Phone: [facility] Work Phone: Procedures Date Procedure Procedure Detail Performing Clinician Start: 06-25-2025 Lipid 1995 panel - S paradise or Plasma Avila Harris MD Work Phone: Start: 06-25-2025 Thyrotropin [Units/v olume] in Serum or Plasma Avila Harris MD Work Phone: Start: 09-21-2023 US ABDOMEN LIMITED LIVER AVILA HARRIS Start: 09-21-2023 Us abdominal real ti me w/image limited Avila Harris MD Work Phone: Start: 09-05-2023 Thyrotropin [Units/v olume] in Serum or Plasma Mike 2 Start: 02-09-2023 Lipid 1995 panel - S paradise or Plasma Avila Harris MD Work Phone: Start: 02-09-2023 Thyrotropin [Units/v olume] in Serum or Plasma Avila Harris MD Work Phone: Start: 11-01-2022 Lipid 1995 panel - S paradise or Plasma Avila Harris MD Work Phone: Start: 11-01-2022 Thyrotropin [Units/v olume] in Serum or Plasma Avila Harris MD Work Phone: Tonsillectomy Avila dhillon Work Phone: Tympanectomy Avila corrigan Work Phone: Plan of Treatment Date Care Activity Detail Author Start: 06-25-2030 Lipid panel Lipid Panel [facility] Start: 02-10-2028 Lipid panel Lipid Panel [facility] Start: 11-02-2027 Lipid panel Lipid Panel [facility] Start: 06-25-2026 Prostate specific antigen measurement PSA Prostate Cancer Screening [facility] Start: 06-25-2026 Thyroid stimulating hormone measurement TSH Level [facility] Start: 12-31-2025 End: 12-31-2025 Patient encounter procedure 12/31/2025 4:00 PM EDT Office Visit [address] [phone] Avila Harris MD [address] [place] [id number] [facility] Start: 12-31-2025 End: 03-31-2026 Comprehensive metabolic 2000 panel - Serum or Plasma Comprehensive Metabolic Panel Lab Routine 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 Mixed hyperlipidemia Fatty liver Expected: 12/31/2025, Expires: 03/31/2026 [facility] Work Phone: Comment on above: Expected: 12/31/2025 , Expires: 03/31/2026 Start: 12-31-2025 End: 03-31-2026 Thyrotropin [Units/volume] in Serum or Plasma Thyroid Stimulating Hormone Lab Routine 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 Mixed hyperlipidemia Expected: 12/31/2025, Expires: 03/31/2026 [facility] Work Phone: Comment on above: Expected: 12/31/2025 , Expires: 03/31/2026 Start: 07-02-2025 End: 07-02-2026 Fibroscan (Liver Elastography) GI Fibroscan (Liver Elastography) GI GI Routine Fatty liver Expected: 07/02/2025, Expires: 07/02/2026 [facility] Service Area Work Phone: Comment on above: Expected: 07/02/2025 , Expires: 07/02/2026 Start: 05-04-2025 COVID-19 Vaccine ( season) COVID-19 Vaccine ( season) [facility] Start: 04-03-2025 Influenza vaccination Influenza Vacc ine (#1) [facility] Start: 09-05-2024 Diabetes mellitus screening Diabetes Screening [facility] Start: 09-05-2024 Thyroid stimulating hormone measurement TSH Level [facility] Start: 05-04-2024 Influenza vaccination Influenz a Vaccine (Season Ended) [facility] Start: 03-11-2024 End: 03-11-2024 Patient encounter procedure 03/11/2024 3:20 PM EDT Office Visit [facility] [address] [place] [phone] Avila Harris MD [address] [place] [address] [facility] Start: 02-10-2024 Thyroid stimulating hormone measurement TSH Level [facility] Start: 11-02-2023 Diabetes mellitus screening Diabetes Screening [facility] Start: 11-02-2023 Hemoglobin A1c measurement Diabetes: Hemoglobin A1C [facility] Start: 11-02-2023 Thyroid stimulating hormone measurement TSH Level [facility] Start: 08-21-2023 End: 08-21-2023 Patient encounter procedure 08/21/2023 2:00 PM EST Office Visit [facility] [address] [place] [phone] Avila Harris MD [address] [place] [address] 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 Expected: 02/15/2023 (Approximate), Expires: 02/16/2024 [facility] Service Area Work Phone: Comment on above: Expected: 02/15/2023 (Approximate), Expires: 02/16/2024 Start: 02-15-2023 End: 02-16-2024 Thyrotropin [Units/volume] in Serum or Plasma Thyroid Stimulating Hormone Lab Routine 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 [address] [place] [phone] Avila Harris MD [address] [place] [address] [facility] Start: 11-06-2022 End: 11-07-2023 Comprehensive metabolic 2000 panel - Serum or Plasma Comprehensive Metabolic Panel Lab Routine Fatty liver Expected: 11/06/2022 (Approximate), Expires: 11/07/2023 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 Expected: 11/06/2022 (Approximate), Expires: 11/07/2023 [facility] Work Phone: Comment on above: Expected: 11/06/2022 (Approximate), Expires: 11/07/2023 Start: 05-04-2022 Influenza vaccination Influenza Vacc ine (#1) [facility] Start: 02-08-2022 EPV, Provider: Avila Harris, Status: Pen, Time: 8:00 AM EPV, Provider: Avila Harris, Status: Pen, Time: 8:00 AM [facility] Work Phone: Start: 01-09-2022 Pneumococcal vaccination Pneumococcal Vaccine (1 of 1 - PCV) [facility] Start: 01-09-2022 Zoster Vaccines (1 o f 2) Zoster Vaccines (1 of 2) [facility] Start: 02-07-2021 EPV, Provider: Heaven Damon, Status: Pen, Time: 8:40 AM EPV, Provider: Heaven Damon, Status: Pen, Time: 8:40 AM [facility] Work Phone: Start: 08-16-2011 Hepatitis A Vaccines (2 of 2 - Risk 2-dose series) Hepatitis A Vaccines (2 of 2 - Risk 2-dose series) [facility] Start: 03-14-2011 Hepatitis B Vaccines (2 of 3 - 19+ 3-dose series) Hepatitis B Vaccines (2 of 3 - 19+ 3-dose series) [facility] Start: 01-09-1994 DTaP/Tdap/Td Vaccine s (1 - Tdap) DTaP/Tdap/Td Vaccines (1 - Tdap) [facility] Start: 01-09-1990 COVID-19 Vaccine (#1) COVID-19 Vacci ne (#1) [facility] Start: 01-09-1990 Hepatitis C screening Hepatitis C Sc roel [facility] Start: 10-29-1986 DTaP/Tdap/Td Vaccine s (2 - Tdap) DTaP/Tdap/Td Vaccines (2 - Tdap) [facility] Start: 01-09-1979 DTaP/Tdap/Td Vaccine s (1 - Tdap) DTaP/Tdap/Td Vaccines (1 - Tdap) [facility] Start: 01-09-1978 Pneumococcal Vaccine : Pediatrics (0 to 5 Years) and At-Risk Patients (6 to 64 Years) (1 - PCV) Pneumococcal Vaccine: Pediatrics (0 to 5 Years) and At-Risk Patients (6 to 64 Years) (1 - PCV) [facility] Start: 01-09-1973 MMR Vaccines (1 of 1 - Standard series) MMR Vaccines (1 of 1 - Standard series) [facility] Start: 1972 COVID-19 Vaccine (#1) COVID-19 Vacci ne (#1) [facility] Start: 1972 Annual Wellness Visi t (AWV) Annual Wellness Visit (AWV) [facility] Start: 1972 HIV screening HIV Screening [facility] Start: 1972 Screening for malign ant neoplasm of colon [facility] Start: 1972 Yearly Adult Physical Yearly Adult P hysical [facility] Immunizations Immunization Date Immunization Notes Care Provider Fa cility 02-14-2011 hepatitis A and hepatitis B vaccine Avila Harris Work Phone: [facility] Work Phone: Comment on above: Series: 02-14-2011 hepatitis A vaccine, unspecified formulation Avila Harris MD Work Phone: [facility] Work Phone: 02-14-2011 hepatitis B vaccine, unspecified formulation Avila Harris MD Work Phone: [facility] Work Phone: 10-28-1986 tetanus and diphther ia toxoids, not adsorbed, for adult use Avila Harris MD Work Phone: [facility] Payers Date Payer Category Payer Self-pay 2025 [employer] [facility] [id number] 2025 Unknown [id number] 2023 Unknown [id number] 2022 Unknown 1972 Unknown [id number] 1972 Unknown [id number] Unknown [id number] Social History Date Type Detail Facility Start: 02-15-2023 End: 02-05-2024 Consumes alcohol Consumes alcohol [facility] Work Phone: Start: 02-15-2023 [facility] End: 09-03-2016 History of tobacco use Current smoker [facility] Work Phone: End: 09-03-2016 History of tobacco use Cigarette Smoker [facility] Work Phone: Start: 02-15-2023 Tobacco use and exposure User of smokeless tobacco [facility] Work Phone: History of tobacco use Chews Tobacco [facility] Work Phone: Start: 02-15-2023 End: 07-02-2025 Alcohol intake Current drinker of alcohol (finding) [facility] Work Phone: Start: 02-15-2023 End: 02-05-2024 Tobacco use panel [facility] Work Phone: Start: 1970 Sex Assigned At Not on file [facility] Work Phone: Start: 10-27-2022 End: 02-05-2024 Exposure to SARS-CoV-2 (event) Not sure [facility] Start: 11-06-2022 Tobacco smoking stat us NHIS Smokes tobacco daily [facility] Start: 11-06-2022 Tobacco use and exposure Smokeless tobacco non-user [facility] Work Phone: Start: 07-29-2022 Sex Male (finding) [facility] Functional Status Date Assessment Result Facility 07-02-2025 Functional status 130/80 [facility] Work Phone: 07-02-2025 Vital signs 96 07/02/2025 3: 42 PM EDT Alice Banueols, MILDRED [facility] Work Phone: 07-02-2025 [facility] Work Phone: Clinical Notes 02-08-2020 to 07-02-2025 Avila Harris MD - 07/02/2025 4:00 PM Ning Harris MD - 02/05/2024 3:00 PM Ning Harris MD - 02/15/2023 2:00 PM Ning Harris MD - 11/06/2022 1:20 PM EST Note Date & Type Note Facility 07-02-2025 History of Present illness Narrative Subjective Patient ID: Julio C Kothari is a 55 y.o. male who presents for Annual Exam (Rev labs). HPI Since the last office visit there have been no interval operations, hospitalizations, important illnesses or injuries. Reviewed persisting liver elevation, reviewed ultrasound has not done well with nonpharmacologic measures Etoh- 24/wk Weight stable This point we will FibroScan and if K PA is elevated refer to hepatology Colon cancer- not suure if cncer but had segmentasl resection and agrees to get colonoscopy at this time Hypothyroid is on 137 x 2 and over suppressed on the last 2 so we will reduce to 125 x 2 or 250 mcg daily with lab in 6 Review of Systems General-no fatigue weight to within 10 pounds ENT no problems with vision swallowing Cardiac no chest pains palpitations change in exercise tolerance or capacity Pulmonary no cough shortness of breath GI no heartburn or abdominal pain Musculoskeletal no joint pains Objective BP 130/80 Pulse 96 Wt 103 kg (228 lb) SpO2 97% BMI 35.71 kg/m Physical Exam General: Alert, No acute distress. Appears stated age Eye: Pupils are equal, round and reactive to light, Extraocular movements are intact, Normal conjunctiva. Neck: Supple, Non-tender, No carotid bruit, No jugular venous distention, No lymphadenopathy, No thyromegaly. Respiratory: Lungs are clear to auscultation, Respirations are non-labored, Breath sounds are equal. Cardiovascular: Normal rate, Regular rhythm, No murmur. Gastrointestinal: Soft, Non-tender, No organomegaly. No solid or pulsatile mass Integumentary: Warm, Dry. No concerning lesions on exposed areas Neurologic: Alert, Oriented. Gross and fine motor intact, CN 2-12 intact Psychiatric: Cooperative, Appropriate mood & affect. 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 male who presents for Knee Pain (right). HPI this is now the second episode of the pain and swelling of the right knee. The last was several years ago and we jennifer off the effusion. This episode is seemingly improving without any intervention other than use of nonsteroidals. He notes less swelling and less pain today. He does not recall having an x-ray. There is been no fevers chills redness or streaking. No known injury. Review of Systems Objective BP 140/82 Pulse 94 Ht 1.702 m (5' 7") Wt 102 kg (224 lb 4.8 oz) SpO2 95% BMI 35.13 kg/m Physical Exam Left knee bends beyond 120 stable ligaments with no pain on exam no effusion. Right knee shows a small amount of effusion bends to 100 degrees. Patella is not ballotable. Medial collateral ligaments are tender to stress. Joint line is slightly tender to palpation medially. Ligaments are stable Assessment/Plan Problem List Items Addressed This Visit ICD-10-CM Hyperlipidemia E78.5 Relevant Medications atorvastatin (Lipitor) 40 mg tablet Other Visit Diagnoses Codes Acute pain of right knee - Primary M25.561 Relevant Medications predniSONE (Deltasone) 10 mg tablet Will use prednisone. Lab and follow-up next month for ongoing health issues documented in this encounter [facility] Work Phone: 02-15-2023 History of Present illness Narrative Subjective Patient ID: Izabella Kothari is a 53 y.o. male who presents for Follow-up (3 mo rev labs). HPI Since the last office visit there have been no interval operations, hospitalizations, important illnesses or injuries. Hyperlipidemia- is on a statin and a prudent diet. Hypothyroid- is not euthyroid on replacement. Thyroid ros is unremarkable. TSH is a 28 will increase from 250 to 300 mcg with TSH in 3 months Fatty liver/alcoholic. States he is reduced to 4-6 just a few times a week averaging about 24/week. Reviewed the importance of weight loss Review of Systems General-no fatigue weight to within 10 pounds ENT no problems with vision swallowing Cardiac no chest pains palpitations change in exercise tolerance or capacity Pulmonary no cough shortness of breath GI no heartburn or abdominal pain Musculoskeletal no joint pains Objective BP 130/72 Pulse 99 Ht 1.702 m (5' 7") Wt 105 kg (232 lb 3.2 oz) SpO2 93% BMI 36.37 kg/m Physical Exam General: Alert, No acute distress. Appears stated age Eye: Pupils are equal, round and reactive to light, Extraocular movements are intact, Normal conjunctiva. Neck: Supple, Non-tender, No carotid bruit, No jugular venous distention, No lymphadenopathy, No thyromegaly. Respiratory: Lungs are clear to auscultation, Respirations are non-labored, Breath sounds are equal. Cardiovascular: Normal rate, Regular rhythm, No murmur. Gastrointestinal: Soft, Non-tender, No organomegaly. No solid or pulsatile mass Integumentary: Warm, Dry. No concerning lesions on exposed areas Neurologic: Alert, Oriented. Gross and fine motor intact, CN 2-12 intact Psychiatric: Cooperative, Appropriate mood & affect. Assessment/Plan Problem List Items Addressed This Visit Digestive Fatty liver Endocrine/Metabolic Class 2 severe obesity with body mass index (BMI) of 35 to 39.9 with serious comorbidity (CMS/HCC) Hypothyroidism - Primary Relevant Medications levothyroxine (Synthroid, Unithroid) 300 mcg tablet Other Relevant Orders Comprehensive Metabolic Panel Thyroid Stimulating Hormone Follow Up In Primary Care documented in this encounter [facility] Work Phone: 11-06-2022 History of Present illness Narrative Subjective Patient ID: Izabella Kothari is a 52 y.o. male who presents for Follow-up (Thyroid ck). Since the last office visit there have been no interval operations, hospitalizations, important illnesses or injuries. Compliance remains an issue and he is taken his medicines about 40 out of the last 60 days. Is also gained significant weight per his report. He is continued to drink alcohol to an excess without a clear number but sometimes more than 6 a day. The issues of alcohol abuse, fatty liver, hyperlipidemia plus noncompliance hours possible I feel for the elevated TSH elevated transaminases Hyperlipidemia on statin with poor compliance markedly elevated labs, recommend weight loss Fatty liver encouraged weight loss and alcohol cessation Hypothyroidism review is surprisingly not remarkable, reviewed need for compliance with 3-month recheck on TSH Review of Systems He denies chest pains palpitations, cough shortness of breath, change in exercise tolerance and capacity, constipation, proximal muscle weakness, rash Objective BP 142/78 (BP Location: Right arm, Patient Position: Sitting) Pulse 72 Ht 1.702 m (5' 7") Wt 106 kg (234 lb) SpO2 98% BMI 36.65 kg/m Physical Exam General: Alert, No acute distress. Appears stated age Eye: Pupils are equal, round and reactive to light, Extraocular movements are intact, Normal conjunctiva. Neck: Supple, Non-tender, No carotid bruit, No jugular venous distention, No lymphadenopathy, No thyromegaly. Respiratory: Lungs are clear to auscultation, Respirations are non-labored, Breath sounds are equal. Cardiovascular: Normal rate, Regular rhythm, No murmur. Gastrointestinal: Soft, Non-tender, No organomegaly. No solid or pulsatile mass Integumentary: Warm, Dry. No concerning lesions on exposed areas Neurologic: Alert, Oriented. Gross and fine motor intact, CN 2-12 intact Psychiatric: Cooperative, Appropriate mood & affect. 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 Most recent TSH 4.49. Increased Synthroid to 250 mcg and will recheck TSH in approximately 6 weeks.Dyslipidemia LDL 78. 13# wt loss from 1Y ago. More active now that it's summertime & trying to not overeat. Nonsmoker. Alcohol: 1 case per wk. No recent hosp/surgeries within the last yr.Mother w/ CRC CA (age dx @ 72Y). No melena, change in bowel habits, abdominal pain. Reviewed [place] P TF recommendations for colorectal cancer screening.reviewed labs w/ pt [id number] 5.9% -discussed lifestyle and dietary modifications and continued weight loss. Will recheck A1c in 1 yearobesity- has lost 13# since last yr thru portion control & being more active. 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- Primary Fatty liver Other chronic nonalcoholic liver disease Class 2 severe obesity with body mass index (BMI) of 35 to 39.9 with serious comorbidity (CMS/HCC) documented in this encounter [facility] Work Phone: Evaluation note* Diagnosis Fatty liver Other chronic nonalcoholic liver disease documented in this encounter [facility] Work Phone: Evaluation note* Diagnosis Acute pain of right knee- Primary Mixed hyperlipidemia documented in this encounter [facility] Work Phone: Evaluation note* Diagnosis Fatty liver- Primary Other chronic nonalcoholic liver disease 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 Suprapatellar space entered from a superior lateral approach aspiration of 60 cc of turbid yellow fluid no blood. Patient tolerated procedure and knee felt much better afterwards. 40 mg Kenalog and 1 cc bupivacaine were injected prior to withdrawal. * Discussion as to etiology and management. If needed resolves over weekend no further action if he does not resolve over the next 72 hours he should have x- ray and we can possibly aspirated on Sunday,or refer to orthopedics. 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 Procedures Follow Up In Primary Care Avila Harris MD [address] [place] [address] Referral ID Status Reason Start Date Expiration Date V isits Requested Visits Authorized [id number] Authorized 02/15/2023 08/14/2023 1 1 [facility] Work Phone: Reason for referral (narrative)* Consultation (Routine) - Authorized Specialty Diagnoses / Procedures Referred By Jorge L chao Referred To Contact Primary Care Diagnoses 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 Procedures Follow Up In Primary Care Avila Harris MD [address] [place] [address] Referral ID Status Reason Start Date Expiration Date V isits Requested Visits Authorized [id number] Authorized 11/06/2022 05/05/2023 1 1 [facility] Work Phone: Summary Purpose Family History No Family History Records FoundUnknown Family Member Name Dates Details Family history of multiple s clerosis: Mother, Sister(V17.2, Z82.0) Status:Active Family history of chronic ob structive pulmonary disease: Father(V17.6, Z82.5) Status:Active Family history of cerebrovas cular accident (CVA): Father(V17.1, Z82.3) Status:Active Family history of diabetes m ellitus: Mother(V18.0, Z83.3) Status:Active Unknown Family Member Name Dates Details Family history of multiple s clerosis: Mother, Sister(V17.2, Z82.0) Status:Active Family history of chronic ob structive pulmonary disease: Father(V17.6, Z82.5) Status:Active Family history of cerebrovas cular accident (CVA): Father(V17.1, Z82.3) Status:Active Family history of diabetes m ellitus: Mother(V18.0, Z83.3) Status:Active Unknown Family Member Name Dates Details Family history of multiple s clerosis: Mother, Sister(V17.2, Z82.0) Status:Active Family history of chronic ob structive pulmonary disease: Father(V17.6, Z82.5) Status:Active Family history of cerebrovas cular accident (CVA): Father(V17.1, Z82.3) Status:Active Family history of diabetes m ellitus: Mother(V18.0, Z83.3) Status:Active Unknown Family Member Name Dates Details Family history of multiple s clerosis: Mother, Sister(V17.2, Z82.0) Status:Active Family history of chronic ob structive pulmonary disease: Father(V17.6, Z82.5) Status:Active Family history of cerebrovas cular accident (CVA): Father(V17.1, Z82.3) Status:Active Family history of diabetes m ellitus: Mother(V18.0, Z83.3) Status:Active Unknown Family Member Name Dates Details Family history of multiple s clerosis: Mother, Sister(V17.2, Z82.0) Status:Active Family history of chronic ob structive pulmonary disease: Father(V17.6, Z82.5) Status:Active Family history of cerebrovas cular accident (CVA): Father(V17.1, Z82.3) Status:Active Family history of diabetes m ellitus: Mother(V18.0, Z83.3) Status:Active Advance Directives No Advanced Directives Records FoundNo Advanced Directives Records FoundNo Advanced Directives Records FoundNo Advanced Directives Records FoundNo Advanced Directives Records FoundNo Advanced Directives Records FoundNo Advanced Directives Records FoundNo Advanced Directives Records Found Chief Complaint THYROID, HL FU REV LABSL KNEE PAIN Reason for Referral Specialty Diagnoses / Procedures Referred By Conthitesh t Referred To Contact Radiology Diagnoses Fatty liver Procedures US abdomen limited liver Avila Harris MD [address] [place] [address] Referral ID Status Reason Start Date Expiration Date Visits Requested Visits Authorized [id number] Authorized Perform Procedure 09/11/2023 09/10/2024 1 1 Additional Source Comments (unrecognized sect ion and content) No Status Records FoundNo Status Records FoundNo Status Records FoundNo Status Records FoundNo Status Records FoundNo Status Records FoundNo Status Records FoundNo Status Records Found INFORMATION SOURCE (unrecogn ized section and content) DATE CREATED AUTHOR 05/20/2019 [facility] DATE CREATED AUTHOR AUTHOR'S ORGANIZ ATION 01/31/2021 [facility] DATE CREATED AUTHOR AUTHOR'S ORGANIZ ATION 04/30/2021 [employer] DATE CREATED AUTHOR AUTHOR'S ORGANIZ ATION 11/03/2022 [facility] DATE CREATED AUTHOR AUTHOR'S ORGANIZ ATION 05/26/2024 [facility] DATE CREATED AUTHOR AUTHOR'S ORGANIZ ATION 06/28/2025 [facility] DATE CREATED AUTHOR AUTHOR'S ORGANIZ ATION 07/04/2025 [facility] DATE CREATED AUTHOR AUTHOR'S ORGANIZ ATION 07/11/2025 [facility] Reason for Visit (unrecogniz ed section and content) Reason Comments Follow-up 3 mo rev labs Specialty Diagnoses / Procedures Referred By Contac t Referred To Contact Primary Care Diagnoses 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 Procedures Follow Up In Primary Care Avila Harris MD [address] [place] [address] Referral ID Status Reason Start Date Expiration Date V isits Requested Visits Authorized [id number] Authorized 11/06/2022 05/05/2023 1 1 Specialty Diagnoses / Procedures Referred By Jorge L chao Referred To Contact Radiology Diagnoses Fatty liver Procedures US abdomen limited liver Avila Harris MD [address] [place] [address] Referral ID Status Reason Start Date Expiration Date Visits Requested Visits Authorized [id number] Authorized Perform Procedure 09/11/2023 09/10/2024 1 1 Reason Comments Knee Pain right Reason Comments Follow-up Thyroid ck Reason Comments Annual Exam Rev labs Care Teams (unrecognized sec tion and content) Stockroom Worker Relationship Specialty Start Date End Date Avila Harris MD [address] [place], [place] [id number] PCP - General 05/06/19 Stockroom Worker Relationship Specialty Start Date End Date Avila Harris MD [address] [place] [address] PCP - General 05/06/19 Stockroom Worker Relationship Specialty Start Date End Date Avila Harris MD [address] [place] [address] PCP - General 05/06/19 Avila Harris MD [address] [place] [address] [facility] 10[facility]04/23 Stockroom Worker Relationship Specialty Start Date End Date Avila Harris MD [address] [place] [address] PCP - General 05/06/19 Stockroom Worker Relationship Specialty Start Date End Date Avila Harris MD [address] [address] PCP - General 05/06/19 Avila Harris MD [address] [address] [facility] PCP 08/03/24 FOR RECORDS PERTAINING TO PATIENTS WHO ARE OR HAVE BEEN ENROLLED IN A CHEMICAL DEPENDENCY/SUBSTANCEABUSE PROGRAM, SOME INFORMATION MAY BE OMITTED. This clinical summary was aggregated from multiple sources. Caution should be exercised in using it in the provision of clinical care. This summary normalizes information from multiple sources, and as a consequence, information in this document may materially change the coding, format and clinical context of patient data. In addition, data may be omitted in some cases. CLINICAL DECISIONS SHOULD BE BASED ON THE PRIMARY CLINICAL RECORDS. [facility] [employer] [facility]. provides no warranty or guarantee of the accuracy or completeness of information in this document.
== END | disposition home or self-care (01) ==
LOC: US 09:20
PROVIDERS: PCP Family Medicine; Referring Provider Family Medicine; Visit Provider Family Medicine
DX: K76.0 Fatty (change of) liver, not elsewhere classified (principal)
CPT/HCPCS: 76705; 76981